=== PATIENT | female | born 1955 | race Hispanic/Latino ===

== ENCOUNTER 2019-09-04 14:21 | Inpatient (IN) | payer SELFPAY ==
[~2019-09-04 14:21] MED LIST: Atropine Sulfate 1 mg/10 ml Syringe ONE
--- NOTE | 2019-09-04 14:51 | RAD ---
Exam: Chest one view HISTORY:Dyspnea. Right lower cavity swelling. Comparison: None FINDINGS: Cardiac silhouette:Enlarged cardiac silhouette due to bibasilar opacities. Aorta: Unremarkable Pulmonary vessels: Prominent Costophrenic angles: Bilateral pleural effusions LUNGS: Bibasilar lung parenchymal opacities. Pneumothorax: None Osseous abnormalities: None IMPRESSION: 1. Bibasilar pleural and parenchymal changes. Correlate for volume overload. Pneumonia and/or aspirat ion cannot be excluded. Continued surveillance is recommended.
[2019-09-04 15:03] LABS: #Eosinphils 0.1 thou/uL (0.0-0.7); #Lymphocytes 1.3 thou/uL (1.20-3.40); #Monocytes 0.2 thou/uL (0.11-0.59); #Neutrophils 6.7 thou/uL (1.40-6.50); %Basophils 0.4 % (0.0-1.0); %Eosinophils 1.3 % (0.0-10.0); %Lymphocytes 15.9 % (21.0-51.0); %Monocytes 2.4 % (0.0-10.0); %Neutrophils 79.9 % (42.0-75.0); Hemoglobin 14.5 g/dL (12.0-16.0); Mean Corpuscular HGB CONC 33.4 g/dL (32.0-36.0); Mean Corpuscular Hemoglobin 28.3 pg (27.0-31.0); Mean Corpuscular Volume 84.8 fL (78.0-98.0); Mean Platelet Volume 7.5 fL (7.4-10.4); Platelet Count 354 thou/uL (130-400); RBC Distribution Width 11.3 % (11.5-14.5); Red Blood Cell (RBC) Count 5.13 mill/uL (4.20-5.40); White Blood Cell (WBC) Count 8.3 thou/uL (4.8-10.8)
[2019-09-04 15:26] LABS: ALT (SGPT) 19 U/L (8-55); AST (SGOT) 24 U/L (5-34); Albumin 4.4 g/dL (3.4-4.8); Alkaline Phosphatase 218 U/L (40-110); Anion Gap 17 mmol/L (10-20); BUN (Urea Nitrogen) 10 mg/dL (9.8-20.1); Bilirubin, Total 0.8 mg/dL (0.2-1.2); CK (CPK) 96 U/L (29-168); Calc. Creatinine Clearance 0 mL/min (70-130); Calcium 9.4 mg/dL (7.8-10.44); Carbon Dioxide 30 mmol/L (23-31); Chloride 86 mmol/L (98-107); Estimated GFR-MDRD 78; Globulin 3.8 g/dL (2.4-3.5); Glucose 330 mg/dL (80-115); Lipase 18 U/L (8-78); Potassium 3.9 mmol/L (3.5-5.1); Protein, Total 8.2 g/dL (6.0-8.3); Sodium 129 mmol/L (136-145)
[2019-09-04] MEDS ORDERED: Rocuronium Bromide 10 MG/ML (10ML VIAL) ONE (15:47)
--- NOTE | 2019-09-04 16:07 | CT ---
CTA THORAX UTILIZING IV CONTRAST, PE PROTOCOL AND 3D REFORMATTED IMAGIN09/04/19 HISTORY: There is concern for a COVID infection; history of untreated breast cancer. FINDINGS: No definite central or segmental pulmonary embolus is evident. There is moderate to prominent bilater al pleural effusions. There are numerous scattered pulmonary nodules throughout both lungs consistent with pulmonary metastatic disease. There are areas of subsegmental volume loss involving both lower lobes as well as the lingula, right middle lobe and portions of the upper lobes. There is an aggressi ve infiltrating mass involving the right breast with skin involvement. There is extensive adenopathy involving the right axilla as well as the prepectoral regions. The largest lymph node in the right ax illa measures 2.7 cm. There is a large supraclavicular lymph node measuring 2.3 cm. There are large l eft axillary lymphadenopathy. There is prominent mediastinal and hilar lymphadenopathy. There is dif fuse anasarca. There is an osteolytic lesion involving the posterior left 9th rib. There is an osteol ytic lesion involving the right aspect of the manubrium. IMPRESSION: 1. 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 2. Extensive lymphadenopathy of the right axilla extending into the right supraclavicular region . There is left sided axillary lymphadenopathy. There is extensive adenopathy of the mediastinum and hilar regions. There is bilateral pulmonary metastatic disease. There are moderate prominent bilatera l pleural effusions with scattered areas of subsegmental volume loss. There is osseous metastatic dis ease involving the left posterior 9th rib and manubrium. 3. Overall appearance of the lungs is not suspicious for pattern seen with COVID-19. 4. No central or segmental pulmonary embolus demonstrated. POS: BH
[2019-09-04] MEDS ORDERED: Cefepime 2 GM VIAL ONE (16:13)
[2019-09-04] MEDS ORDERED: Vancomycin 1 GM/200 ML BAG ONE (16:13)
[2019-09-04] MEDS ORDERED: Furosemide 20 MG/2 ML VIAL ONE (16:13)
[2019-09-04] MEDS ORDERED: Sodium Chloride 0.9% 100 ML ONE (16:14)
--- NOTE | 2019-09-04 16:16 | RAD ---
Exam: Chest one view HISTORY:Metastatic cancer. Shortness of breath. Possible COVID patient. Comparison: 09/04/2019 2:43 PM FINDINGS: Lines and tubes: Endotracheal tube at the level of the ahsan. Nasogastric tube extends beyond the di aphragm. Cardiac silhouette: Normal Aorta: Unremarkable Pulmonary vessels: Normal Costophrenic angles: Bilateral pleural effusions. LUNGS: Improved expansion of the lung parenchyma. Multifocal lung parenchymal opacities. Pneumothorax: None Osseous abnormalities: None IMPRESSION: 1. Pleural and parenchymal changes throughout the lung parenchyma 2. Endotracheal tube at the level of the ahsan. Repositioning is recommended 3. Results of study discussed with Dr. Zaman 09/04/2019 4:13 PM Code CR
[2019-09-04 16:21] LABS: Actual Bicarbonate (HCO3a) 26.8 mEq/L (22-28); Base Excess (BEa) 1.8 mEq/L (-2.0 to +3.0); CO2 Tension 43.2 mmHg (35.0-45.0); Calcium, Ionized 1.06 mmol/L (1.12-1.30); Carboxyhemoglobin (COHb) 1.3 gm% (0.0-3.0); O2 Tension (PaO2) 194.9 mmHg (> 80.0); Potassium - ABG Lab 3.76 mmol/L (3.70-5.30); pH, Arterial 7.41 (7.35-7.45)
[2019-09-04] MEDS ORDERED: Propofol 1,000 MG/100 ML VIAL IV ONE (16:23)
[2019-09-04 16:41] LABS: Puncture Site L.R.
[2019-09-04] MEDS ORDERED: CCU Electrolyte Replacement 1 EACH FS SCH (17:10)
[2019-09-04] MEDS ORDERED: Ventilator Sedation Protocol 1 EACH FS SCH (17:15)
[2019-09-04 17:28] LABS: Bacteria/HPF None Seen HPF (None Seen); Bilirubin Negative (Negative); Blood, Urine Trace (Negative); Clarity Clear (Clear); Glucose, Urine (Dipstick) >=1000 mg/dL (Negative); Leukocyte Negative Leu/uL (Negative); Nitrite Negative (Negative); Protein, Urine (Dipstick) 100 mg/dL (Neg-Trace); RBC/HPF 0-3 HPF (0-3); Squamous Epithelial 0-3 HPF (0-3); Urobilinogen Normal mg/dL (Less than 2); WBC/HPF 0-3 HPF (0-3)
[2019-09-04] MEDS ORDERED: PHOS-NAK 1 PKT PACK PO PRN ×2 (18:18)
[2019-09-04] MEDS ORDERED: CCU ELECTROLYTE REPLACEMENT PROTOCOL FS PRN (18:18)
[2019-09-04] MEDS ORDERED: Propofol 1,000 MG/100 ML VIAL IV PRN (18:18)
[2019-09-04] MEDS ORDERED: Magnesium 2 GM/50 ML 2 GM in Premix Bag 1 BAG IVPB PRN (18:18)
[2019-09-04] MEDS ORDERED: Morphine 2 MG/ML SYRINGE SLOW IVP PRN (18:18)
[2019-09-04] MEDS ORDERED: DISCONTINUE PREVIOUS NARCOTIC PAIN MEDICATIONS AND BENZODIAZEPINES FS SCH (18:18)
[2019-09-04] MEDS ORDERED: Potassium Phosphate 15 MMOL in Sodium Chloride 0.9% 250 ML 250 ML IV PRN (18:18)
[2019-09-04] MEDS ORDERED: Propofol BOLUS 1,000 MG/100 ML VIAL IV PRN (18:18)
[2019-09-04] MEDS ORDERED: Magnesium Oxide 400 MG TAB PO PRN ×2 (18:18)
[2019-09-04] MEDS ORDERED: Fentanyl BOLUS 250 ML IVPB PRN (18:18)
[2019-09-04] MEDS ORDERED: Potassium Phosphate 9 MMOL in Sodium Chloride 0.9% 100 ML IVPB PRN (18:18)
[2019-09-04] MEDS ORDERED: Potassium Phosphate 12 MMOL in Sodium Chloride 0.9% 250 ML 250 ML IV PRN (18:18)
[2019-09-04] MEDS ORDERED: Potassium Chloride 20 MEQ TAB PO PRN (18:18)
[2019-09-04] MEDS ORDERED: Lorazepam 2 MG/ML VIAL SLOW IVP PRN (18:18)
[2019-09-04] MEDS ORDERED: Potassium Chloride 40 MEQ in Sodium Chloride 0.9% 250 ML 250 ML IVPB PRN (18:18)
[2019-09-04] MEDS ORDERED: Potassium Chloride 40 MEQ in Premix Bag 1 BAG IVPB PRN (18:18)
[2019-09-04] MEDS ORDERED: fentaNYL Citrate/PF 2,000 MCG in Sodium Chloride 0.9% 60 ML IV SCH (18:18)
[2019-09-04] MEDS ORDERED: HumaLOG 300 UNITS/3 ML VIAL SC PRN (18:52)
[2019-09-04] MEDS ORDERED: Dextrose 50% Abboject 50 ML SYRINGE SLOW IVP PRN (18:52)
[2019-09-04] MEDS ORDERED: Dextrose 5% in Water 1,000 ML IV PRN (18:52)
--- NOTE | 2019-09-04 19:45 | HP ---
CHIEF COMPLAINT: Lower extremity edema. HISTORY OF PRESENT ILLNESS: This patient is a 64-year-old female who presented to the emergency department reporting lower extremity edema. Patient stated she was generally healthy, in fact, told the ER staff that she had been dancing the evening before presenting and her primary concern was some swelling of her lower extremities. She had progressive worsening dyspnea in the emergency department to the point that she required intubation, although she reported no history of this prior to her presentation. I find the patient in the ICU intubated. She is awake and able to interact somewhat with mostly head gestures. In the emergency department, the patient was noted to have what appeared to be a substantial right-sided breast cancer. In asking the patient about this, she states that her breast has had significant changes like this for over two years and it has not caused her any pain. PAST MEDICAL HISTORY: Patient denies any surgeries or medical problems. Denies taking any medications and denies specifically being a diabetic. REVIEW OF SYSTEMS: Very limited given the patient is intubated and has some propofol on board but again primarily concerned with the lower extremity swelling. Otherwise, has felt well. FAMILY HISTORY: Not significantly obtainable. SOCIAL HISTORY: Nonsmoker, nondrinker. Again, limited history. MEDICATIONS: None. ALLERGIES: NONE KNOWN. PHYSICAL EXAMINATION: VITAL SIGNS: Temperature is 97.3, pulse 94, respirations 20, and O2 saturation 98% on ventilator on 40% FiO2. GENERAL APPEARANCE: Age-appropriate female, obese, in no distress. She is awake. She is able to communicate with head gestures. She is intubated on the ventilator with propofol drip. HEENT: Pupils are reactive. NECK: Supple. HEART: Regular rate and rhythm. LUNGS: Clear to auscultation bilaterally, but very diminished even anteriorly. ABDOMEN: Soft, nontender, and nondistended. EXTREMITIES: Reveal 1+ edema in both lower extremities with diminished pulses, likely due to edema. BREAST: Reveals advanced peau d'orange changes of the right breast with some fissures superficially in the skin. It is all extremely firm to palpation. PSYCH: Patient has a generally normal affect and appears to have normal movement of her extremities. LABORATORY DATA: White count 8.3, hemoglobin 14.5, and platelets 354. Sodium 129, potassium 3.9, chloride 86, CO2 is 30, BUN 10, creatinine 0.75, glucose 330, lactic acid 2.7, calcium is 9.4, AST is 24, ALT 19, alk phos 218, and LDH 250. Troponin less than 10. BNP 131. Albumin 4.4. Urinalysis shows greater than 1000 glucose, trace protein, trace blood, and trace ketones. Flu screen, negative. CTA of the chest reveals no evidence of pulmonary edema. There are findings consistent with advanced inflammatory breast cancer of the right breast, extensive lymphadenopathy of the right axilla extending into the right supraclavicular region. There is left-sided axillary lymphadenopathy, extensive adenopathy of the mediastinum and hilar regions, bilateral pulmonary metastatic disease, moderate prominent bilateral pleural effusions with scattered areas of subsegmental volume loss, osseous metastatic disease involving the left posterior 9th rib and manubrium. Overall appearance of the lungs is not suspicious for COVID. IMPRESSION AND PLAN: 1. Acute hypoxic respiratory failure secondary to metastatic disease and bilateral pleural effusions, which may well be malignant effusions. The patient is intubated, admitted to the ICU. She is on propofol. Pulmonary has been consulted. Anticipate thoracentesis with appropriate workup. 2. Widely metastatic inflammatory breast cancer. Patient reports this has been ongoing for at least two years. She has mets to bilateral axillary and right supraclavicular lymph nodes, the lungs, and to the bone of the rib and manubrium. The patient will obviously need to follow up with Oncology. We will need to get cytology results on the fluid, although at this point, she appears to clearly be a stage IV and beyond any surgical interventions. 3. Hyponatremia, likely due to some syndrome of inappropriate antidiuretic hormone secretion from the pleural effusions. We will gently hydrate. Continue to monitor. 4. Diabetes mellitus, not previously diagnosed. We will give sliding scale insulin. Accu-Cheks and check hemoglobin A1c. 5. Lactic acidosis secondary to the respiratory failure. No evidence of infection at this time. Job ID: [id number]
--- NOTE | 2019-09-04 20:18 | CON ---
DATE OF CONSULTATION: 09/04/2019 CONSULTING PHYSICIAN: Fernandez Terrell MD REASON FOR CONSULTATION: Respiratory failure. HISTORY OF PRESENT ILLNESS: The history, I have, is obtained from talking with Dr. Terrell, reading the ER notes. No family is available to give history. The patient is a 64-year-old [place]-speaking female, who came to the emergency room with hypoxia. She was subsequently intubated as the emergency room was scared that she might have COVID. She has been found to have an apparent right breast cancer with a fungating breast. She has bilateral effusions, which I think was causing respiratory failure. PAST MEDICAL HISTORY: Currently not known. PAST SURGICAL HISTORY: Not known. SOCIAL HISTORY: Does not smoke. Does not consume alcohol. Does not use illicit drugs. She is apparently from [place]. PSYCHIATRIC HISTORY: Unknown. MEDICATIONS: Prior to admission, unknown. ALLERGIES: UNKNOWN. REVIEW OF SYSTEMS: Cannot be obtained as she is currently on mechanical ventilation. PHYSICAL EXAMINATION: VITAL SIGNS: Heart rate 75, blood pressure 160/80, respiratory rate 20, O2 saturation 100%, and temperature 97.3. GENERAL: She is actually awake, alert, and follows commands without difficulty. HEENT: Unremarkable. NECK: No adenopathy or JVD. LUNGS: Diminished breath sounds at both bases posteriorly. Dullness at both bases posteriorly. CARDIOVASCULAR: S1 and S2. Slightly tachycardic. BREASTS: She has peau d'orange appearance of the right breast. Left breast looks okay. ABDOMEN: Soft and nontender. No hepatosplenomegaly. EXTREMITIES: No clubbing, cyanosis, or edema. LABORATORY DATA: White blood cell count 8.3, hematocrit 43.5, and platelet count 354. PH of 7.41, pCO2 of 43, PO2 of 194. Sodium 129, potassium 3.9, chloride 86, CO2 of 30, BUN 10, creatinine 0.7, glucose 330, alkaline phosphatase 218, LDH 250. BNP 130. Lactate 2.7. Her CT scan shows the suppurative lesion in the right breast. She has extensive lymphadenopathy in the right axilla and the right supraclavicular region. She has left-sided axillary adenopathy. She has bilateral effusions, right greater than left. She has osseous metastasis to the left posterior 9th rib and the manubrium. ASSESSMENT: This is a 64-year-old female, presenting with an inflammatory right breast cancer with bilateral effusions and respiratory failure. I think most likely her respiratory failure is from the pleural effusions and she would benefit from emergent right-sided thoracentesis. Hopefully, she can be extubated tomorrow. I do not have a high suspicion that this is COVID-19 and I do not think she requires isolation. A thoracentesis has been performed-see separate operative note. The fluid has been sent for appropriate studies. Again, my hope is that she can be extubated tomorrow morning. Job ID: [id number]
[2019-09-04 20:28] LABS: Body Fluid Source Pleural Fluid; Clarity Hazy (Clear); RBC Count-Automated (BF) 22230 /cumm; WBC/Nucleated-Auto (BF) 1580 uL
[2019-09-04 20:29] LABS: Tube # EDTA
[2019-09-04 20:41] LABS: Fluid, Triglycerides 25 mg/dL (Not Available); Pleural Fluid, Amylase Less than 30 U/L (Not Available); Pleural Fluid, Glucose 371 mg/dL; Pleural Fluid, LDH 156 U/L (Not Available); Pleural Fluid, Protein 4.4 g/dL
[2019-09-04 20:46] LABS: BF Segmented Neutrophils 8 %; Cell Count Non Hematic 25 %; Eosinophils 2 %; Lymphocytes 65 %
[2019-09-04 21:02] LABS: Lactic Acid 2.8 mmol/L (0.5-2.2)
[2019-09-04] MEDS: Sodium Chloride 0.9% 1,000 ML IV SCH (21:43)
[2019-09-05 04:40] LABS: Hemoglobin A1c 10.8 % (4.0-6.0)
[2019-09-05 04:53] LABS: Anion Gap 13 mmol/L (10-20); BUN (Urea Nitrogen) 11 mg/dL (9.8-20.1); Calc. Creatinine Clearance 91 mL/min (70-130); Calcium 8.5 mg/dL (7.8-10.44); Carbon Dioxide 34 mmol/L (23-31); Chloride 91 mmol/L (98-107); Estimated GFR-MDRD 86; Glucose 109 mg/dL (80-115); Sodium 135 mmol/L (136-145)
[2019-09-05 04:57] LABS: Potassium 2.6 mmol/L (3.5-5.1)
[2019-09-05 05:02] LABS: #Lymphocytes 0.9 thou/uL (1.20-3.40); #Monocytes 0.3 thou/uL (0.11-0.59); #Neutrophils 6.2 thou/uL (1.40-6.50); %Eosinophils 0.4 % (0.0-10.0); %Lymphocytes 12.4 % (21.0-51.0); %Monocytes 4.2 % (0.0-10.0); %Neutrophils 82.9 % (42.0-75.0); Hemoglobin 12.2 g/dL (12.0-16.0); Mean Corpuscular HGB CONC 34.4 g/dL (32.0-36.0); Mean Corpuscular Hemoglobin 28.9 pg (27.0-31.0); Mean Corpuscular Volume 84.2 fL (78.0-98.0); Mean Platelet Volume 7.9 fL (7.4-10.4); Platelet Count 260 thou/uL (130-400); RBC Distribution Width 11.2 % (11.5-14.5); Red Blood Cell (RBC) Count 4.21 mill/uL (4.20-5.40); White Blood Cell (WBC) Count 7.5 thou/uL (4.8-10.8)
--- NOTE | 2019-09-05 06:23 | OP ---
DATE OF PROCEDURE: 09/04/2019 PROCEDURE PERFORMED: Right thoracentesis. PREOPERATIVE DIAGNOSIS: Malignant right pleural effusion. POSTOPERATIVE DIAGNOSIS: Malignant right pleural effusion. ANESTHESIA: 1% lidocaine without epinephrine. DESCRIPTION OF PROCEDURE: No family was available for consent. This was done to alleviate a pleural effusion so that she could breathe. The patient was placed in a sitting position. The right posterior hemithorax was cleansed at the 5th interspace at the midscapular line. Chlorhexidine was used for the prep. 1% lidocaine was used to anesthetize the entry site. A [id number]-P-[id number] catheter was placed in the pleural space and approximately 1 L of neyda/brown pleural fluid was removed and sent for appropriate studies. She tolerated the procedure well. Job ID: [id number]
[2019-09-05] MEDS ORDERED: DC Sedation Protocol FS ONE (07:29)
--- NOTE | 2019-09-05 07:50 | PRG ---
DATE OF SERVICE: 09/05/2019 35 minutes critical care time. SUBJECTIVE: The patient is sedated on mechanical ventilation. She has done well overnight. PHYSICAL EXAMINATION: VITAL SIGNS: She is 99.5, pulse 65, blood pressure 115/62, O2 saturation 100%. She is requiring no vasopressors. GENERAL: She is sedated on propofol. HEENT: Unremarkable. NECK: No adenopathy or JVD. LUNGS: Fairly clear at the bases. She has a peau d'orange appearance of her right breast. CARDIAC: S1, S2. Regular. ABDOMEN: Soft. EXTREMITIES: Trace edema. LABORATORY DATA: Pleural fluid was a lymphocytic exudate. Her white cell count 7.5, hematocrit 35.4, and platelet count 260. Sodium 135, potassium 2.6, chloride 91, CO2 of 34, BUN 11, creatinine 0.6, glucose 109. Hemoglobin A1c is 10.8. ASSESSMENT: 1. Metastatic breast cancer. 2. Likely malignant pleural effusions. 3. Acute respiratory failure requiring mechanical ventilation. PLAN: With the drainage of the effusion I think she is probably weanable. We will turn off her sedation and extubate. We will follow up on the results of the pleural fluid. She likely will need an oncologic opinion once the cytology from the pleural fluid is back. If for some reason the pleural fluid cytology is negative, then the breast can be biopsied. Job ID: [id number]
--- NOTE | 2019-09-05 08:00 | RAD ---
SINGLE VIEW CHEST: Date: 09/05/2019 COMPARISON: 09/04/2019. HISTORY: Shortness of breath. Metastatic cancer. Possible COVID patient. FINDINGS: Single view of the chest shows a cardiomediastinal silhouette which is upper limits of normal in size . The lines and tubes are unchanged in position. There are small bilateral pleural effusions. An infi ltrate versus atelectasis is seen in the right lung base. IMPRESSION: 1. Bilateral pleural effusions. 2. Right basilar atelectasis versus infiltrate. POS: EAA
[2019-09-05] MEDS: Enoxaparin Sodium 40 MG/0.4 ML SYRINGE SC SCH ×2 (08:32→08:47)
[2019-09-05] MEDS: Pantoprazole 40 MG VIAL IVP SCH (08:33)
[2019-09-05] MEDS: Sodium Chloride 0.9% 1,000 ML IV SCH ×2 (10:18→21:24)
--- NOTE | 2019-09-05 13:43 | EKG ---
Test Reason : Blood Pressure : / mmHG Vent. Rate : 102 BPM Atrial Rate : 102 BPM P-R Int : 138 ms QRS Dur : 080 ms QT Int : 316 ms P-R-T Axes : 025 -17 018 degrees QTc Int : 411 ms Sinus tachycardia with Premature supraventricular complexes Inferior infarct , age undetermined Anterior infarct , age undetermined Abnormal ECG Confirmed by BELKIS ZEE ([id number]), publications editor CHUCK FORD ([id number]) on 09/05/2019 1:43:30 PM Referred By: Confirmed By:BELKIS ZEE
[2019-09-05] MEDS ORDERED: HumaLOG 300 UNITS/3 ML VIAL SC PRN (14:19)
--- NOTE | 2019-09-05 14:22 | PDOC.HOSPP ---
- Subjective Encounter Date: 09/05/19 Subjective: Extubated, still somewhat sedated. - Objective Vital Signs & Weight: Vital Signs (12 hours) Temp Pulse Resp BP Pulse Ox 09/05/19 11:00 98.7 F 09/05/19 08:30 95 09/05/19 08:20 75 21 H 94 L 09/05/19 08:00 20 09/05/19 07:21 65 135/61 09/05/19 07:00 99 F 09/05/19 06:00 20 09/05/19 04:00 20 09/05/19 03:49 79 Weight Admit Weight 153 lb Weight 153 lb 7.068 oz Most Recent Monitor Data Heart Rate from ECG 76 NIBP 170/84 NIBP BP-Mean 112 Respiration from ECG 21 SpO2 95 I&O: 09/04/19 09/05/19 09/06/19 06:59 06:59 06:59 Intake Total 707 5.7 Output Total 1760 595 Balance -1053 -589.3 Result Diagrams: 09/05/19 04:10 09/05/19 04:10 Additional Labs: Accuchecks 09/05/19 09/05/19 11:16 00:34 POC Glucose 226 H 268 H Hospitalist ROS - Medication Medications: Active Medications Generic Name Dose Route Start Last Admin Trade Name Freq PRN Reason Stop Dose Admin Enoxaparin Sodium 40 mg 09/05/19 09:00 09/05/19 08:47 Lovenox SC Not Given 0900 JAROD Potassium Chloride 40 meq/ 270 mls @ 135 mls/hr 09/04/19 18:18 09/05/19 06:00 Sodium Chloride IVPB 270 mls ASDIR PRN Administration FOR SERUM K+ 2.5 - 3.5 Sodium Chloride 1,000 mls @ 50 mls/hr 09/04/19 19:00 09/05/19 10:18 Normal Saline 0.9% IV 1,000 mls .Q20H JAROD Administration Pantoprazole Sodium 40 mg 09/05/19 09:00 09/05/19 08:33 Protonix IVP 40 mg DAILY JAROD Administration Sodium Chloride 10 ml 09/05/19 09:00 09/05/19 08:33 Flush - Normal Saline IVF 10 ml Q12HR JAROD Administration - Exam General Appearance: NAD General - other findings: Obese Heart: RRR, no murmur, no gallops, no rubs, normal peripheral pulses Respiratory: CTAB, no wheezes, no rales, no ronchi, normal chest expansion, no tachypnea, normal percussion Gastrointestinal: soft, non-tender, non-distended, normal bowel sounds, no palpable masses, no hepatomegaly, no splenomegaly, no bruit Extremities: no cyanosis, no clubbing, no edema Musculoskeletal: generalized weakness Psychiatric: somnolent Hosp A/P (1) Acute respiratory failure with hypoxia Code(s): J96.01 - ACUTE RESPIRATORY FAILURE WITH HYPOXIA Status: Acute (2) Bilateral pleural effusion Code(s): J90 - PLEURAL EFFUSION, NOT ELSEWHERE CLASSIFIED Status: Acute (3) Metastatic breast cancer Code(s): C50.919 - MALIGNANT NEOPLASM OF UNSP SITE OF UNSPECIFIED FEMALE BREAST Status: Acute (4) Diabetes mellitus Code(s): E11.9 - TYPE 2 DIABETES MELLITUS WITHOUT COMPLICATIONS Status: Acute - Plan Resp failure: Secondary to effusions. S/P thoracentesis 09/03. Extubated 09/04. NC oxygen. Pleural effusions: Likely malignant. S/P thoracentesis. Metastatic Inflammatory Breast Cancer: Mets to bilateral axillary nodes, thoracic nodes, lungs, bone. Await confirmation from pleural fluid, then consult Onc. Otherwise, breast biopsy. DM: SSI.
[2019-09-05 16:01] LABS: Potassium 4.3 mmol/L (3.5-5.1)
--- NOTE | 2019-09-05 16:30 | PDOC.PALCO ---
Palliative Care Consult - Consult Details Requesting Physician: Dr Dial Reason for Consult: goals of care, assistance with communication prognosis/ disease - Pertinent HPI 64 year old female who reported that she had been "healthy" prior to presenting to the emergency room for lower extremity edema. While in the emergency room she experienced onset dyspnea with increase in severity. She eventually required intubation and admitted to the CCU. Upon exam in the emergency room she was noted to have pronounced right sided breast cancer, patient reports the changes have occurred over the past two years but had not sought any help. - Social History Smoking Status: Never smoker Smoking: no tobacco exposure Alcohol Use: none Drug Use History: none Living Situation: (Lives with her and daughter) - Medications MAR Reviewed: Yes - Allergies Allergies/Adverse Reactions: Allergies Allergy/AdvReac Type Severity Reaction Status Date / Time No Known Drug Allergies Allergy Verified 09/04/19 18:17 - ROS Constitutional: alert, other (denies malaise, fever) Eyes: other (denies visual changes) ENT: other (mild sore throat, denies difficulity swallowing) Respiratory: other (denies chortness of breath, cough) Cardiology: edema Gastrointestinal: other (negative for constipation, diarrhea, nausea) Genitourinary: other (denies dysuria prior to cardoso) Musculoskeletal: other (denies pain to extremities) Skin: wounds (As per wound photo to right breast) - Objective Vital Signs: Vital Signs - Most Recent Temp Pulse Resp BP Pulse Ox 97.7 F 75 21 H 135/61 95 09/05/19 15:00 09/05/19 08:20 09/05/19 08:20 09/05/19 07:21 09/05/19 08:30 Palliative Performance Scale: 80 - Physical Exam Constitutional: NAD HEENT: EOMI, moist MMs, sclera anicteric, poor dentition Respiratory: no wheezing, unlabored breathing, diminished lung sound Cardiovascular: RRR Gastrointestinal: non-tender, no distention, positive bowel sounds Genitourinary: cardoso catheter Musculoskeletal: pulses present, edema present Neurology: moves all 4 limbs, no focal deficits Skin: cap refill <2 seconds Deviation from normal: wound to right breast Psychiatric: A&O x 3, normal affect - Problem List (1) Palliative care encounter Code(s): Z51.5 - ENCOUNTER FOR PALLIATIVE CARE Current Visit: Yes Status: Acute (2) Diabetes mellitus Code(s): E11.9 - TYPE 2 DIABETES MELLITUS WITHOUT COMPLICATIONS Current Visit : Yes Status: Acute (3) Metastatic breast cancer Code(s): C50.919 - MALIGNANT NEOPLASM OF UNSP SITE OF UNSPECIFIED FEMALE BREAST Current Visit: Yes Status: Acute - Plan/Recommendations Plan: Introduced palliative care to patient with Kerrie Chandler RN and use of beehive kiln supervisor. Discussed current status, and her understanding of breast mass. States she wishes to pursue treatment for cancer. No funding. Lives with her and daughter, she has another daughter in [place]. Favorite thing is to cook for her family in her home. Denies shortness of breath although significant shortness of breath noted. Records reviewed and patient assessed. *Will communicate with family to identify resources and provide emotional support and assistance with disease prognosis. *Emotional support. *Spiritual care involved. [50] minutes spent on this encounter with >50% of the time in counseling and coordination of care. Thank you for this very appropriate consult.
[2019-09-06 07:34] LABS: #Lymphocytes 0.7 thou/uL (1.20-3.40); #Monocytes 0.5 thou/uL (0.11-0.59); #Neutrophils 9.2 thou/uL (1.40-6.50); %Basophils 0.1 % (0.0-1.0); %Eosinophils 0.4 % (0.0-10.0); %Monocytes 5.1 % (0.0-10.0); %Neutrophils 87.4 % (42.0-75.0); Hemoglobin 15.3 g/dL (12.0-16.0); Mean Corpuscular HGB CONC 32.8 g/dL (32.0-36.0); Mean Corpuscular Hemoglobin 28.9 pg (27.0-31.0); Mean Platelet Volume 8.6 fL (7.4-10.4); Platelet Count 149 thou/uL (130-400); RBC Distribution Width 11.6 % (11.5-14.5); Red Blood Cell (RBC) Count 5.28 mill/uL (4.20-5.40); White Blood Cell (WBC) Count 10.5 thou/uL (4.8-10.8)
[2019-09-06 07:36] LABS: Anion Gap 16 mmol/L (10-20); BUN (Urea Nitrogen) 12 mg/dL (9.8-20.1); Calc. Creatinine Clearance 99 mL/min (70-130); Calcium 8.5 mg/dL (7.8-10.44); Carbon Dioxide 27 mmol/L (23-31); Chloride 93 mmol/L (98-107); Estimated GFR-MDRD Greater than 90; Glucose 194 mg/dL (80-115); Potassium 3.8 mmol/L (3.5-5.1); Sodium 132 mmol/L (136-145)
--- NOTE | 2019-09-06 08:17 | PRG ---
DATE OF SERVICE: 09/06/2019 SUBJECTIVE: The patient appears to be doing well. Does not have any complaints of shortness of breath. OBJECTIVE: VITAL SIGNS: On exam, temperature is 98.7, pulse 83, respirations 18, O2 saturation 94%, and blood pressure 194/106. HEENT: Unremarkable. NECK: No JVD. LUNGS: Diminished breath sounds at both bases. CARDIOVASCULAR: S1 and S2, regular. CHEST: She has peau d'orange right breast mass. ABDOMEN: Soft and nontender. EXTREMITIES: No edema. LABORATORY DATA: White blood cell count 10.5, hematocrit 46.5, and platelet count 149. Sodium 132, potassium 3.8, chloride 93, CO2 of 27, BUN 12, creatinine 0.6, and glucose 194. ASSESSMENT: 1. Likely metastatic breast cancer. 2. Bilateral pleural effusions, likely malignant. 3. Status post respiratory failure, requiring mechanical ventilation. PLAN: Await results from pleural fluid cytology. Job ID: [id number]
[2019-09-06] MEDS: Pantoprazole 40 MG VIAL IVP SCH (08:25)
[2019-09-06] MEDS: Enoxaparin Sodium 40 MG/0.4 ML SYRINGE SC SCH (08:27)
[2019-09-06] MEDS: Sodium Chloride 0.9% 1,000 ML IV SCH ×2 (17:44→20:25)
--- NOTE | 2019-09-06 18:51 | PDOC.HOSPP ---
- Subjective Encounter Date: 09/06/19 Subjective: Doing well today. Denies problems. Breathing comfortably. No pain. - Objective Vital Signs & Weight: Vital Signs (12 hours) Temp Pulse Resp BP BP Pulse Ox 09/06/19 08:30 175/97 H 09/06/19 07:44 98.7 F 83 18 194/106 H 94 L Weight Admit Weight 153 lb Weight 153 lb 7.068 oz Most Recent Monitor Data Heart Rate from ECG 71 NIBP 154/83 NIBP BP-Mean 106 Respiration from ECG 16 SpO2 94 I&O: 09/05/19 09/06/19 09/07/19 06:59 06:59 06:59 Intake Total 707 862.7 Output Total 1760 875 Balance -1053 -12.3 Result Diagrams: 09/06/19 06:55 09/06/19 06:55 Additional Labs: Accuchecks 09/06/19 09/06/19 18:29 12:09 POC Glucose 287 H 272 H Hospitalist ROS - Medication Medications: Active Medications Generic Name Dose Route Start Last Admin Trade Name Freq PRN Reason Stop Dose Admin Enoxaparin Sodium 40 mg 09/05/19 09:00 09/06/19 08:27 Lovenox SC Not Given 0900 JAROD Potassium Chloride 40 meq/ 270 mls @ 135 mls/hr 09/04/19 18:18 09/05/19 06:00 Sodium Chloride IVPB 270 mls ASDIR PRN Administration FOR SERUM K+ 2.5 - 3.5 Sodium Chloride 1,000 mls @ 50 mls/hr 09/04/19 19:00 09/06/19 17:44 Normal Saline 0.9% IV Not Given .Q20H JAROD Pantoprazole Sodium 40 mg 09/05/19 09:00 09/06/19 08:25 Protonix IVP 40 mg DAILY JAROD Administration Sodium Chloride 10 ml 09/05/19 09:00 09/06/19 08:26 Flush - Normal Saline IVF 10 ml Q12HR JAROD Administration - Exam General Appearance: NAD, awake alert Heart: RRR, no murmur, no gallops, no rubs, normal peripheral pulses Respiratory: CTAB, no wheezes, no rales, no ronchi, normal chest expansion, no tachypnea, normal percussion Respiratory - other findings: Diminished in both bases. Gastrointestinal: soft, non-tender, non-distended, normal bowel sounds, no palpable masses, no hepatomegaly, no splenomegaly, no bruit Extremities: no cyanosis, no clubbing, no edema Skin: normal turgor, no lesions, no rashes Musculoskeletal: normal tone, normal strength, no muscle wasting Psychiatric: normal affect Hosp A/P (1) Acute respiratory failure with hypoxia Code(s): J96.01 - ACUTE RESPIRATORY FAILURE WITH HYPOXIA Status: Acute (2) Bilateral pleural effusion Code(s): J90 - PLEURAL EFFUSION, NOT ELSEWHERE CLASSIFIED Status: Acute (3) Metastatic breast cancer Code(s): C50.919 - MALIGNANT NEOPLASM OF UNSP SITE OF UNSPECIFIED FEMALE BREAST Status: Acute (4) Diabetes mellitus Code(s): E11.9 - TYPE 2 DIABETES MELLITUS WITHOUT COMPLICATIONS Status: Acute - Plan Resp failure: Secondary to effusions. S/P thoracentesis 09/03. Extubated 09/04. NC oxygen. Wean as tolerated. Pleural effusions: Likely malignant. S/P thoracentesis. Metastatic Inflammatory Breast Cancer: Mets to bilateral axillary nodes, thoracic nodes, lungs, bone. Await confirmation from pleural fluid, then consult Onc. Otherwise, breast biopsy. DM: New diagnosis. SSI. Dispo: If she can be weaned off the oxygen, she can likely go home with outpatient followup. Will need oncology followup. Difficult to trust that she will follow through as she has let this severe deformation of right breast go for 2 years without addressing it.
[2019-09-07] MEDS ORDERED: hydrALAZINE 25 MG TAB PO PRN (05:26)
--- NOTE | 2019-09-07 07:16 | RAD ---
2 VIEWS CHEST: Date: 09/07/2019 COMPARISON: 09/05/2019. HISTORY: Shortness of breath. FINDINGS: Two views of the chest show a normal sized cardiomediastinal silhouette. There are stable moderate bi lateral pleural effusions with adjacent atelectasis. The endotracheal tube and NG tube have been faith katie. IMPRESSION: Stable bilateral pleural effusions. POS: [facility]
[2019-09-07] MEDS: Pantoprazole 40 MG VIAL IVP SCH (08:07)
[2019-09-07] MEDS: Enoxaparin Sodium 40 MG/0.4 ML SYRINGE SC SCH (08:07)
[2019-09-07] MEDS ORDERED: metFORMIN 500 MG TAB PO SCH (09:30)
--- NOTE | 2019-09-07 11:11 | PDOC.HOSPP ---
- Subjective Encounter Date: 09/07/19 Subjective: Feels ok. She has mild cough with sputum, but denies SOB. - Objective Vital Signs & Weight: Vital Signs (12 hours) Temp Pulse Resp BP BP BP Pulse Ox 09/07/19 08:19 192/88 H 09/07/19 08:00 95 09/07/19 07:07 98.3 F 83 18 206/106 H 95 09/07/19 05:36 78 180/106 H 09/07/19 05:09 97.6 F 75 16 173/103 H 94 L 09/07/19 04:00 93 L 09/07/19 02:06 88 20 91 L 09/07/19 01:05 98.2 F 85 20 144/91 H 85 L Weight Admit Weight 153 lb Weight 153 lb 7.068 oz Most Recent Monitor Data Heart Rate from ECG 71 NIBP 154/83 NIBP BP-Mean 106 Respiration from ECG 16 SpO2 94 I&O: 09/06/19 09/07/19 09/08/19 06:59 06:59 06:59 Intake Total 862.7 1500 Output Total 875 Balance -12.3 1500 Result Diagrams: 09/06/19 06:55 09/06/19 06:55 Additional Labs: Accuchecks 09/07/19 09/07/19 09/06/19 05:08 01:00 18:29 POC Glucose 281 H 330 H 287 H 09/06/19 12:09 POC Glucose 272 H Hospitalist ROS - Medication Medications: Active Medications Generic Name Dose Route Start Last Admin Trade Name Freq PRN Reason Stop Dose Admin Enoxaparin Sodium 40 mg 09/05/19 09:00 09/07/19 08:07 Lovenox SC 40 mg 0900 JAROD Administration Potassium Chloride 40 meq/ 270 mls @ 135 mls/hr 09/04/19 18:18 09/05/19 06:00 Sodium Chloride IVPB 270 mls ASDIR PRN Administration FOR SERUM K+ 2.5 - 3.5 Sodium Chloride 1,000 mls @ 50 mls/hr 09/04/19 19:00 09/06/19 20:25 Normal Saline 0.9% IV 1,000 mls .Q20H JAROD Administration Metformin HCl 500 mg 09/07/19 09:30 09/07/19 09:44 Glucophage PO 09/07/19 11:30 500 mg NOW JAROD Administration Pantoprazole Sodium 40 mg 09/05/19 09:00 09/07/19 08:07 Protonix IVP 40 mg DAILY JAROD Administration Sodium Chloride 10 ml 09/05/19 09:00 09/07/19 08:07 Flush - Normal Saline IVF Not Given Q12HR JAROD - Exam General Appearance: NAD, awake alert Heart: RRR, no murmur, no gallops, no rubs, normal peripheral pulses Respiratory: CTAB, no wheezes, no rales, no ronchi, normal chest expansion, no tachypnea, normal percussion Respiratory - other findings: Slightly diminished at bases. Gastrointestinal: soft, non-tender, non-distended, normal bowel sounds, no palpable masses, no hepatomegaly, no splenomegaly, no bruit Extremities - other findings: mild generalized edema. Musculoskeletal: normal tone, normal strength, no muscle wasting Psychiatric: normal affect, normal behavior, A&O x 3 Hosp A/P (1) Acute respiratory failure with hypoxia Code(s): J96.01 - ACUTE RESPIRATORY FAILURE WITH HYPOXIA Status: Acute (2) Bilateral pleural effusion Code(s): J90 - PLEURAL EFFUSION, NOT ELSEWHERE CLASSIFIED Status: Acute (3) Metastatic breast cancer Code(s): C50.919 - MALIGNANT NEOPLASM OF UNSP SITE OF UNSPECIFIED FEMALE BREAST Status: Acute (4) Diabetes mellitus Code(s): E11.9 - TYPE 2 DIABETES MELLITUS WITHOUT COMPLICATIONS Status: Acute - Plan Resp failure: Secondary to effusions. S/P thoracentesis 09/03. Extubated 09/04. NC oxygen. Wean as tolerated. Pleural effusions: Malignant. S/P thoracentesis. Metastatic Inflammatory Breast Cancer: Mets to bilateral axillary nodes, thoracic nodes, lungs, bone. Path confirms metastatic breast cancer/malig effusion. Long discussion with the [employer] hide paster. She is from [place] near [facility]. She would like to go back there for her treatment. DM: New diagnosis. SSI. Added metformin. HTN: BP now running high. No hx of htn. Adding meds. Dispo: If she can be weaned off the oxygen, she can likely go home with outpatient followup. Will need oncology followup.
[2019-09-07] MEDS ORDERED: guaiFENesin ER 600 MG TAB PO SCH (11:15)
--- NOTE | 2019-09-07 14:54 | PRG ---
DATE OF SERVICE: 09/07/2019 SUBJECTIVE: Simi has no complaints. OBJECTIVE: VITAL SIGNS: She is afebrile. Heart rates , 95 on nasal cannula. Blood pressure is elevated today 206/106. LUNGS: Decreased breath sounds at her bases. HEART: Regular rhythm. ABDOMEN: Soft. Pleural fluid, positive for malignant cells. IMPRESSION: Metastatic breast cancer. radiograph was stable. Job ID: [id number]
[2019-09-07] MEDS: metFORMIN 500 MG TAB PO SCH (16:13)
[2019-09-07] MEDS: hydrALAZINE 25 MG TAB PO SCH ×2 (16:13→21:32)
[2019-09-07] MEDS: Sodium Chloride 0.9% 1,000 ML IV SCH (21:32)
[2019-09-07] MEDS: guaiFENesin ER 600 MG TAB PO SCH (21:33)
[2019-09-08] MEDS ORDERED: cloNIDine 0.1 MG TAB PO PRN (04:29)
[2019-09-08] MEDS ORDERED: cloNIDine 0.1 MG TAB PO SCH (07:00)
[2019-09-08] MEDS: Enoxaparin Sodium 40 MG/0.4 ML SYRINGE SC SCH (07:59)
[2019-09-08] MEDS: metFORMIN 500 MG TAB PO SCH ×2 (07:59→18:00)
[2019-09-08] MEDS: guaiFENesin ER 600 MG TAB PO SCH (07:59)
[2019-09-08] MEDS: hydrALAZINE 25 MG TAB PO SCH ×2 (07:59→15:10)
[2019-09-08] MEDS: Pantoprazole 40 MG VIAL IVP SCH (10:38)
[2019-09-08] MEDS ORDERED: Iopamidol-370 76% 500 ML 1 ML ONE (12:27)
[2019-09-08] MEDS ORDERED: Ketamine 50 MG/ML (10ML VIAL) ONE (17:35)
[2019-09-08] MEDS ORDERED: Rocuronium Bromide 10 MG/ML (10ML VIAL) ONE (17:35)
[2019-09-08] MEDS ORDERED: Propofol 1,000 MG/100 ML VIAL IV ONE (17:47)
[2019-09-08] MEDS ORDERED: Lorazepam 2 MG/ML VIAL SLOW IVP PRN (18:21)
[2019-09-08] MEDS ORDERED: Propofol BOLUS 1,000 MG/100 ML VIAL IV PRN (18:21)
[2019-09-08] MEDS ORDERED: fentaNYL Citrate/PF 2,000 MCG in Sodium Chloride 0.9% 60 ML IV SCH (18:21)
[2019-09-08] MEDS ORDERED: DISCONTINUE PREVIOUS NARCOTIC PAIN MEDICATIONS AND BENZODIAZEPINES FS SCH (18:21)
[2019-09-08] MEDS ORDERED: Fentanyl BOLUS 250 ML IVPB PRN (18:21)
--- NOTE | 2019-09-08 18:31 | PDOC.EVN ---
Event Note - Event Note Event Note: Patient was eval'd by Dr. Gillette today and he ordered some staging workup. While in CT she had hypoxia and bradycardia and almost arrested. Had a code green and was intubated for acute hypoxic respiratory failure. She stabilized and has central line placed now. Will transfer to ICU. Discussed with Dr. Cartagena. Differential includes PE (has been on Lovenox), cardiac ischemia/ arrhythmia.
[2019-09-08 18:34] LABS: Actual Bicarbonate (HCO3a) 26.1 mEq/L (22-28); Analyzer IN Cardio ER; Base Excess (BEa) 3.1 mEq/L (-2.0 to +3.0); CO2 Tension 35.1 mmHg (35.0-45.0); Calcium, Ionized 1.09 mmol/L (1.12-1.30); Carboxyhemoglobin (COHb) 0.4 gm% (0.0-3.0); Hemoglobin (Hb) 13.4 g/dL (12.0-16.0); O2 Tension (PaO2) 74.5 mmHg (> 80.0); Potassium - ABG Lab 3.59 mmol/L (3.70-5.30); pH, Arterial 7.49 (7.35-7.45)
--- NOTE | 2019-09-08 18:36 | RAD ---
PORTABLE SUPINE CHEST: 09/08/19 INDICATIONS: Assess central line placement. COMPARISON: 09/05/19. FINDINGS/IMPRESSION: ET tube remains in place with tip above ahsan. A central line via the left subclavian appears adequ ately positioned with tip overlying the SVC/right atrium. There is vascular congestion with evidence of bilateral edema and/or infiltrates. There are bilateral effusions again noted. POS: [facility]
[2019-09-08 18:39] LABS: Puncture Site LRA
[2019-09-08 18:40] LABS: ALV-art Gradient 166.825 (0-20)
--- NOTE | 2019-09-08 19:02 | CON ---
DATE OF CONSULTATION: REASON FOR CONSULTATION: Metastatic breast cancer. HISTORY OF PRESENT ILLNESS: A 64-year-old female without past medical history as she does not follow with a physician, presenting to the hospital with worsening lower extremity edema and shortness of breath. In the ER, she had worsening dyspnea, requiring intubation. She was treated in the ICU and extubated and is feeling much better. The patient has a large right-sided breast mass that is inner way at her breast and chest wall with bilateral upper extremity swelling and pleural effusions and is status post thoracentesis, which found metastatic breast cancer in the pleural fluid. The patient states she first noticed changes in her breast at least 2 years ago and says she was treated with antibiotics by a physician in [place]. She says she had a mammogram at that time and was told she had symptoms of cancer, but says she was never diagnosed with that. She never saw a doctor again. She cannot explain why she did not get the breast mass evaluated, but says that it does not cause her pain and perhaps this is why. She denies pain elsewhere and no fevers, nausea, vomiting, diarrhea, constipation, headaches, blurry vision, or vision changes. She denies any family history of breast cancer nor any other cancer. She states she does not smoke or drink. PAST MEDICAL HISTORY: None; however, likely has undiagnosed diabetes and hypertension at the very least. REVIEW OF SYSTEMS: Ten-point review of systems negative except as per HPI. FAMILY HISTORY: No cancer as per the patient. SOCIAL HISTORY: No tobacco or alcohol. Lives with , daughter, and son-in-law. MEDICATIONS: None at home. Current medications reviewed. ALLERGIES: NO KNOWN DRUG ALLERGIES. PHYSICAL EXAMINATION: VITAL SIGNS: Temperature 98.2, pulse 89, blood pressure 155/79, and satting 96% on room air. GENERAL APPEARANCE: The patient is sitting up in chair, in no acute distress. HEENT: Normocephalic and atraumatic. RESPIRATIONS: Nonlabored. CARDIAC: Tachycardia noted. ABDOMEN: Soft, obese. EXTREMITIES: 1+ bilateral lower extremity edema and 1 to 2+ edema in upper extremities bilaterally. BREASTS: Breast is bandaged, but shows diffuse neglected breast cancer of the right breast with minimal right axillary lymphadenopathy palpable. The left breast shows some peau d'orange changes with skin dimpling and left axillary lymphadenopathy is palpable. LABORATORY DATA: White blood cells 10.5, hemoglobin 15.3, and platelets 149. Sodium 132, potassium 3.8, BUN 12, and creatinine 0.63. Hemoglobin A1c 10.8%. Lactate 2.8%. Calcium 8.5 and alkaline phosphatase 218. BNP 130.9. IMAGING DATA: CT angio of the chest showed no pulmonary edema, but did show advanced inflammatory breast cancer of the right breast with extensive right axillary adenopathy and right supraclavicular adenopathy with some left-sided axillary lymphadenopathy, mediastinal and hilar lymphadenopathy, bilateral pulmonary metastatic disease and pleural effusions along with osseous metastatic disease in the left posterior 9th rib and manubrium. ASSESSMENT AND PLAN: A 64-year-old female with neglected right-sided breast cancer with diffuse metastatic disease to lungs and bone along with possible metastatic disease to the left breast versus 2nd primary. I reviewed the diagnosis and staging with the patient and potential treatment options including oral therapy and IV chemotherapy. The exact treatment and prognosis will depend on her hormone status, HER-2 status. This was a wide range between HER-2 and hormone positive disease and triple-negative breast cancer. I suspect she likely has hormone positive disease. If this has in fact been here for 2 years, and clinically she appears this well. If this is the case, then I would plan to start her on endocrine therapy with Femara and oral Ibrance. She will also need a bisphosphonate to her metastatic bone disease. We will go ahead with bone scan and CT abdomen and pelvis to complete staging as she currently is uninsured and this will be difficult to get in the outpatient setting at this time. She does qualify for breast Medicaid and this process has already been started. I will follow up her breast profile, which should be back sometime next week and I will follow up with her in clinic after that. The patient acknowledges understanding. Thank you for this consult. Job ID: [id number]
--- NOTE | 2019-09-08 19:29 | CT ---
CTA CHEST WITH CONTRAST: 09/08/19 Axial tomograms obtained following angio protocol with multiplanar reconstruction and 3D postprocessi ng. INDICATIONS: Unresponsive, cardiac arrest. Comparison made to recent CTA chest 09/04/19. FINDINGS: The pulmonary arteries show adequate opacification. There is new pulmonary emboli now seen on the right. There is emboli in the right interlobar descendi ng pulmonary artery with extension into the right lower lobe pulmonary arteries. There is also embol us seen into a right upper lobe pulmonary artery. No definite left lung embolus identified. Large bilateral pleural effusions with lung atelectasis. There is cardiomegaly with vascular congesti on. Evidence of pulmonary edema. There are numerous pulmonary nodules again noted which were describe d previously. The adenopathy has been previously described on the prior exam. The right breast mass w ith skin thickening is again seen consistent with inflammatory carcinoma as previously described. The osseous metastatic lesions are again noted. IMPRESSION: 1. Numerous small pulmonary emboli seen in the right pulmonary arteries. 2. Large bilateral pleural effusions with compressive atelectasis. 3. Congestive change with edema. Confluent atelectasis in the right middle lobe. 4. Numerous pulmonary nodules again noted along with adenopathy and right breast mass as describ ed on recent exam of 09/04/19. Subcutaneous edema consistent with anasarca again noted. Findings relayed to Dr. Jose by phone. POS: [facility]
--- NOTE | 2019-09-08 19:40 | CT ---
CT ABDOMEN AND PELVIS WITH IV CONTRAST: 09/08/19 INDICATION: Breast cancer. Known pulmonary mets. Assess for abdominal metastasis. FINDINGS: Images through the lung bases show a large amount of pleural effusion with pulmonary edema, atelectas is and consolidation and/or atelectasis in the right middle lobe. Images through the lung bases also show the previously described mass involving the right breast with skin involvement and diffuse subcu taneous edema noted on recent CTA of chest. The liver, spleen and pancreas unremarkable. Bowel loops unremarkable. Aorta normal caliber. No mass or adenopathy in the abdomen. Uterus unremarkable. The osseous structures of the lumbar spine and pel vis show no focal lytic or destructive lesion. IMPRESSION: Chest findings as described above on images through the lower chest. No evidence of acute process in the abdomen. POS: [facility]
[2019-09-08] MEDS ORDERED: hydrALAZINE 20 MG/ML VIAL SLOW IVP PRN (19:41)
[2019-09-08] MEDS ORDERED: Enoxaparin Sodium 80 MG/0.8 ML SYRINGE SC SCH (19:45)
[2019-09-08] MEDS: Sodium Chloride 0.9% 1,000 ML IV SCH (20:58)
[2019-09-08] MEDS: Enoxaparin Sodium 80 MG/0.8 ML SYRINGE SC SCH (20:58)
[2019-09-08 23:13] LABS: CKMB 0.9 ng/mL (0-6.6)
[2019-09-09] MEDS: HumaLOG 300 UNITS/3 ML VIAL SC PRN (00:31)
[2019-09-09 04:41] LABS: CKMB 0.8 ng/mL (0-6.6)
[2019-09-09] MEDS: Propofol 1,000 MG/100 ML VIAL IV PRN ×3 (04:49→22:31)
[2019-09-09] MEDS: Pantoprazole 40 MG VIAL IVP SCH (09:20)
[2019-09-09] MEDS: Enoxaparin Sodium 80 MG/0.8 ML SYRINGE SC SCH ×2 (09:21→21:30)
[2019-09-09] MEDS ORDERED: Furosemide 20 MG/2 ML VIAL SLOW IVP SCH (10:15)
[2019-09-09 10:35] LABS: #Lymphocytes 1.1 thou/uL (1.20-3.40); #Monocytes 0.5 thou/uL (0.11-0.59); #Neutrophils 5.7 thou/uL (1.40-6.50); %Basophils 0.1 % (0.0-1.0); %Eosinophils 0.4 % (0.0-10.0); %Lymphocytes 14.9 % (21.0-51.0); %Monocytes 6.6 % (0.0-10.0); Hemoglobin 11.7 g/dL (12.0-16.0); Mean Corpuscular HGB CONC 34.2 g/dL (32.0-36.0); Mean Corpuscular Hemoglobin 29.7 pg (27.0-31.0); Mean Corpuscular Volume 86.9 fL (78.0-98.0); Mean Platelet Volume 7.4 fL (7.4-10.4); Platelet Count 247 thou/uL (130-400); RBC Distribution Width 11.3 % (11.5-14.5); Red Blood Cell (RBC) Count 3.93 mill/uL (4.20-5.40); White Blood Cell (WBC) Count 7.3 thou/uL (4.8-10.8)
[2019-09-09 10:49] LABS: ALT (SGPT) 10 U/L (8-55); AST (SGOT) 12 U/L (5-34); Albumin 2.8 g/dL (3.4-4.8); Alkaline Phosphatase 128 U/L (40-110); Anion Gap 13 mmol/L (10-20); BUN (Urea Nitrogen) 10 mg/dL (9.8-20.1); Bilirubin, Total 0.8 mg/dL (0.2-1.2); Calc. Creatinine Clearance 108 mL/min (70-130); Calcium 8.7 mg/dL (7.8-10.44); Carbon Dioxide 30 mmol/L (23-31); Chloride 95 mmol/L (98-107); Estimated GFR-MDRD Greater than 90; Globulin 3.1 g/dL (2.4-3.5); Glucose 136 mg/dL (80-115); Potassium 3.6 mmol/L (3.5-5.1); Protein, Total 5.9 g/dL (6.0-8.3); Sodium 134 mmol/L (136-145)
--- NOTE | 2019-09-09 11:33 | CON ---
DATE OF CONSULTATION: HISTORY OF PRESENT ILLNESS: Ms. Koroma is a 64-year-old woman with stage IV right-sided breast cancer and recurrent bilateral pleural effusions. She has undergone thoracentesis recently of the right pleural effusion with good re-expansion of the right lung. Since that time, she has completely reaccumulated the effusion to its previous level. The effusion had malignant cells in it on pathology. I have been asked to see her to place a PleurX catheter. PAST MEDICAL HISTORY: Metastatic breast cancer. PAST SURGICAL HISTORY: None. CURRENT MEDICATIONS: At home, none. ALLERGIES: NONE. SOCIAL HISTORY: Unknown. PHYSICAL EXAMINATION: GENERAL: Currently, she is intubated on the ventilator. VITAL SIGNS: Height is 5 feet, weight is 159 pounds, pulse is 70 and regular, blood pressure is 123/58. LUNGS: She has diminished breath sounds bilaterally. She is intubated with 100% oxygen saturation. BREASTS: She has dressings over both of her breasts due to exophytic tumor. HEART: Rhythm is regular without murmur. ABDOMEN: Soft. LABORATORY DATA: Of note, hemoglobin is 11.7, white blood cell count is 7.3, platelet count is 11.3. Creatinine is 0.63, potassium is 3.8, sugars have been in the 200 to 250 range. ASSESSMENT AND PLAN: This is a 64-year-old woman who is currently intubated due to respiratory arrest during CAT scan. I have discussed the situation with her family and we will plan to place a PleurX catheter tomorrow. She has qualified for Medicaid due to her breast cancer and will be able to get bottles for the PleurX through that avenue. Job ID: [id number]
--- NOTE | 2019-09-09 14:11 | PDOC.HOSPP ---
- Subjective Encounter Date: 09/09/19 Subjective: Intubated, but awake. Tolerating vent well. - Objective Vital Signs & Weight: Vital Signs (12 hours) Temp Pulse Resp BP Pulse Ox 09/09/19 12:00 98.9 F 16 09/09/19 11:07 70 130/62 09/09/19 10:00 16 09/09/19 08:00 99.4 F 16 100 09/09/19 06:19 67 105/65 09/09/19 06:00 16 09/09/19 04:27 66 09/09/19 04:00 16 Weight Admit Weight 153 lb Weight 159 lb 13.362 oz Most Recent Monitor Data Heart Rate from ECG 69 NIBP 110/70 NIBP BP-Mean 83 Respiration from ECG 16 SpO2 97 I&O: 09/08/19 09/09/19 09/10/19 06:59 06:59 06:59 Intake Total 652.1 30 Output Total 1520 1005 Balance -867.9 -975 Result Diagrams: 09/09/19 10:25 09/09/19 10:25 Additional Labs: Accuchecks 09/09/19 09/09/19 09/08/19 11:56 00:27 17:11 POC Glucose 136 H 222 H 251 H Hospitalist ROS - Medication Medications: Active Medications Generic Name Dose Route Start Last Admin Trade Name Freq PRN Reason Stop Dose Admin Enoxaparin Sodium 70 mg 09/09/19 09:00 09/09/19 09:21 Lovenox SC 09/10/19 09:01 70 mg 0900,2100 JAROD Administration Potassium Chloride 40 meq/ 270 mls @ 135 mls/hr 09/04/19 18:18 09/05/19 06:00 Sodium Chloride IVPB 270 mls ASDIR PRN Administration FOR SERUM K+ 2.5 - 3.5 Sodium Chloride 1,000 mls @ 50 mls/hr 09/04/19 19:00 09/08/19 20:58 Normal Saline 0.9% IV 1,000 mls .Q20H JAROD Administration Insulin Human Lispro 0 units 09/07/19 09:26 09/09/19 00:31 Humalog SC 4 unit .MODERATE SLIDING SC PRN Administration Moderate Correctional Scale Pantoprazole Sodium 40 mg 09/05/19 09:00 09/09/19 09:20 Protonix IVP 40 mg DAILY JRAOD Administration Propofol 1,000 mg 09/08/19 18:21 09/09/19 04:49 Diprivan IV 10/08/19 18:21 1,000 mg INF PRN Administration TO ACHIEVE GOAL RASS Protocol Sodium Chloride 10 ml 09/05/19 09:00 09/09/19 09:20 Flush - Normal Saline IVF 10 ml Q12HR JAROD Administration - Exam General Appearance: NAD, awake alert Heart: RRR, no murmur, no gallops, no rubs, normal peripheral pulses Respiratory: CTAB, no wheezes, no rales, no ronchi, normal chest expansion, no tachypnea, normal percussion Respiratory - other findings: Diminished at bases. Gastrointestinal: soft, non-tender, non-distended, normal bowel sounds, no palpable masses, no hepatomegaly, no splenomegaly, no bruit Extremities: 1+ LE edema Extremities - other findings: UE's more than LE's. Skin: normal turgor Musculoskeletal: generalized weakness Psychiatric: normal affect, normal behavior Hosp A/P (1) Acute respiratory failure with hypoxia Code(s): J96.01 - ACUTE RESPIRATORY FAILURE WITH HYPOXIA Status: Acute (2) Bilateral pleural effusion Code(s): J90 - PLEURAL EFFUSION, NOT ELSEWHERE CLASSIFIED Status: Acute (3) Metastatic breast cancer Code(s): C50.919 - MALIGNANT NEOPLASM OF UNSP SITE OF UNSPECIFIED FEMALE BREAST Status: Acute (4) Diabetes mellitus Code(s): E11.9 - TYPE 2 DIABETES MELLITUS WITHOUT COMPLICATIONS Status: Acute (5) Pulmonary emboli Code(s): I26.99 - OTHER PULMONARY EMBOLISM WITHOUT ACUTE COR PULMONALE Status : Acute (6) HTN (hypertension) Code(s): I10 - ESSENTIAL (PRIMARY) HYPERTENSION Status: Acute - Plan Resp failure: Secondary to reaccumulated pleural effusions and PE's. S/P thoracentesis 09/03. Extubated 09/04, resp arrest with re-intubation on 09/07 secondary to recurrent effusions and PE's. Wean as tolerated. Pleural effusions: Malignant. S/P thoracentesis. Rapid reaccumulation. PleurX catheter tomorrow. Metastatic Inflammatory Breast Cancer: Mets to bilateral axillary nodes, thoracic nodes, lungs, bone. Path confirms metastatic breast cancer/malig effusion. Apparently she actually lives here and has her green card. She will be able to get breast cancer medicaid and get treatment here. She was getting work up when the resp arrest happened. No abdominal pathology noted. Onc following. DM: New diagnosis. SSI. Better control now. HTN: BP now better. No hx of htn. Dispo: PleurX catheter to drain effusion and see if we can wean her. She and her family seem to have a very difficult time understanding the situation and the gravity of it. Low healthcare IQ.
[2019-09-09] MEDS: Sodium Chloride 0.9% 1,000 ML IV SCH (14:16)
--- NOTE | 2019-09-09 16:50 | ULT ---
BILATERAL UPPER EXTREMITY VENOUS DOPPLER ULTRASOUND: Date: 09-09-2019 History: Breast cancer, edema. Bilateral pulmonary emboli. Technique: Multiplanar grayscale sonographic imaging of venous structures of the bilateral upper extr emities obtained with color flow and spectral analysis. FINDINGS: The internal jugular vein and subclavian vein appear patent on the right. There is a 2.5 cm hypoechoi c mass adjacent to the subclavian vein on the right suggesting metastatic lymphadenopathy. The sonogr apher was unable to compress the right axillary vein and thus DVT cannot be excluded. However, sonogr apher reports that the inability to compress the right axillary vein was likely technical in nature a s the patient was in restraints. The doppler imaging of the right axillary vein appears patent. The right cephalic vein, brachial vein, basilic vein, radial vein, and ulnar vein are patent. The left internal jugular vein appears patent. The provided imaging suggests retrograde blood flow wi thin the left internal jugular vein of uncertain etiology. The left subclavian vein and left axillary vein appear patent. The left brachial vein and left cephalic vein are patent. Within the left upper extremity there is a focal area of partial superficial thrombosis of the left basilic vein. Left radial vein and left ulna r vein are patent. IMPRESSION: 1. Findings suggesting metastatic lymphadenopathy adjacent to the right subclavian vein. 2. Left axillary vein could not be compression and thus, DVT cannot be excluded. However, the sonogra pher favors the inability to compress the vessel to be technical in nature. Perhaps when the patient is able, re-evaluation of this region would be beneficial. 3. Findings suggesting reversal of flow within a patent left internal jugular vein, etiology uncertai n. 4. Focal area of superficial venous thrombosis involving the left basilic vein. POS: [facility]
--- NOTE | 2019-09-09 16:52 | PRG ---
DATE OF SERVICE: 09/09/2019 SUBJECTIVE: Ms. Ga Hill tentatively is on the schedule tomorrow for a tunneled catheter. She will awaken when not sedated. Moves all of her extremities. Events yesterday have been reviewed. Apparently, she arrested in the CT scanner. CT pulmonary angiogram showed small thromboembolic events, but I suspect the reason she arrested was that she could not lay down flat with her large effusions and her extensive breast cancer with deconditioning and obesity. Her prognosis is quite guarded. OBJECTIVE: VITAL SIGNS: Heart rates in the 70s, blood pressure 147/77, respiratory rates in the teens. LUNGS: Unchanged. HEART: Unchanged. ABDOMEN: Unchanged. LABORATORY DATA: White count 7.3, hemoglobin 11.7, platelets 247. Sodium 134, potassium 3.6, chloride 95, bicarb 30, BUN 10, creatinine 0.6. PH 7.49, pCO2 of 35, pO2 of 74. IMPRESSION: 1. Respiratory failure associated with metastatic breast cancer. 2. Thromboembolic disease, that I do not believe contributed to her arrest. a. I do not feel that was the cause. b. The thromboembolic events were small and on the right. I do not feel that she needs bilateral pleural drainage catheters. I think it will be adequate to have her drained on one side. I suspect she will have to come into the hospital __ because of limited resources and limited ability to understand everything that is going on. Critical care time is 35 minutes. Job ID: [id number] MTDD
[2019-09-10 04:21] LABS: #Eosinphils 0.1 thou/uL (0.0-0.7); #Lymphocytes 1.1 thou/uL (1.20-3.40); #Monocytes 0.5 thou/uL (0.11-0.59); #Neutrophils 6.9 thou/uL (1.40-6.50); %Basophils 0.2 % (0.0-1.0); %Eosinophils 0.6 % (0.0-10.0); %Lymphocytes 12.9 % (21.0-51.0); %Monocytes 5.6 % (0.0-10.0); %Neutrophils 80.6 % (42.0-75.0); Hemoglobin 11.4 g/dL (12.0-16.0); Mean Corpuscular HGB CONC 33.3 g/dL (32.0-36.0); Mean Corpuscular Hemoglobin 29.2 pg (27.0-31.0); Mean Corpuscular Volume 87.7 fL (78.0-98.0); Mean Platelet Volume 7.9 fL (7.4-10.4); Platelet Count 240 thou/uL (130-400); RBC Distribution Width 11.4 % (11.5-14.5); Red Blood Cell (RBC) Count 3.92 mill/uL (4.20-5.40); White Blood Cell (WBC) Count 8.5 thou/uL (4.8-10.8)
[2019-09-10 04:41] LABS: ALT (SGPT) 11 U/L (8-55); AST (SGOT) 17 U/L (5-34); Albumin 2.7 g/dL (3.4-4.8); Alkaline Phosphatase 141 U/L (40-110); Anion Gap 15 mmol/L (10-20); BUN (Urea Nitrogen) 10 mg/dL (9.8-20.1); Bilirubin, Total 0.7 mg/dL (0.2-1.2); Calc. Creatinine Clearance 105 mL/min (70-130); Calcium 8.6 mg/dL (7.8-10.44); Carbon Dioxide 26 mmol/L (23-31); Chloride 97 mmol/L (98-107); Estimated GFR-MDRD Greater than 90; Globulin 3.2 g/dL (2.4-3.5); Glucose 125 mg/dL (80-115); Potassium 3.2 mmol/L (3.5-5.1); Protein, Total 5.9 g/dL (6.0-8.3); Sodium 135 mmol/L (136-145)
[2019-09-10] MEDS ORDERED: Fentanyl 100 MCG/2 ML VIAL ONE (07:17)
[2019-09-10] MEDS ORDERED: Midazolam HCl 2 mg/2 ml Vial ONE (07:17)
--- NOTE | 2019-09-10 08:19 | PRG ---
DATE OF SERVICE: 09/10/2019 The patient has been re-intubated because of respiratory failure. She has gone downstairs for PleurX catheter. OBJECTIVE: VITAL SIGNS: Temperature 99.4, pulse 73, blood pressure 141/77, O2 saturation 93%. Intake for 24 hours 1497, output 1398. HEENT: Unremarkable. NECK: No JVD. LUNGS: Clear, except to the bases. CARDIAC: S1, S2. Regular. ABDOMEN: Soft. EXTREMITIES: No edema. LABORATORY DATA: White blood cell count 8.5, hematocrit 34.4, platelet count 240. ABG pending. Sodium 135, potassium 3.2, chloride 97, CO2 of 26, BUN 10, creatinine 0.6, glucose 125. ASSESSMENT: 1. Malignant right pleural effusion. 2. Metastatic breast cancer. 3. Pulmonary emboli. PLAN: 1. PleurX catheter is being inserted. 2. Hopefully, we can extubate after that. 3. As far gone as her breast cancer is, her prognosis is extremely poor. I suspect she has no financial means of taking the appropriate treatment. Job ID: [id number]
[2019-09-10] MEDS: Enoxaparin Sodium 80 MG/0.8 ML SYRINGE SC SCH (09:03)
[2019-09-10] MEDS: Pantoprazole 40 MG VIAL IVP SCH (09:13)
--- NOTE | 2019-09-10 09:23 | OP ---
DATE OF PROCEDURE: 09/10/2019 PREOPERATIVE DIAGNOSIS: Malignant recurrent right pleural effusion. POSTOPERATIVE DIAGNOSIS: Malignant recurrent right pleural effusion. PROCEDURE PERFORMED: Right PleurX catheter placement. ANESTHESIA: General endotracheal. ESTIMATED BLOOD LOSS: Minimal. DESCRIPTION OF PROCEDURE: After consent was obtained from the family, the patient was brought to the operating room, intubated under general anesthesia. She was placed in supine position on the operating room table. Right chest wall was prepped and draped in usual sterile fashion. Chest wall was anesthetized with 1% lidocaine. A tunneled PleurX catheter was then placed. 1200 mL of fluid was aspirated. The catheter was secured with silk drain stitch. The patient was then transported back to the ICU in critical condition. Job ID: [id number]
[2019-09-10] MEDS: Sodium Chloride 0.9% 1,000 ML IV SCH (11:14)
--- NOTE | 2019-09-10 14:36 | PDOC.MOPN ---
Interval History: reintubated after CT scan, remains on vent. - Vital Signs Vital Signs: Vital Signs (12 hours) Temp Pulse Resp BP Pulse Ox 09/10/19 14:09 56 L 114/65 09/10/19 14:00 16 09/10/19 12:00 16 09/10/19 10:26 64 124/80 09/10/19 10:00 99.1 F 16 09/10/19 08:00 16 98 09/10/19 07:00 99.4 F 09/10/19 06:44 59 L 125/66 09/10/19 06:00 16 09/10/19 04:39 67 09/10/19 04:00 98.7 F 16 Weight Admit Weight 153 lb Weight 161 lb 13.109 oz Most Recent Monitor Data Heart Rate from ECG 65 NIBP 114/65 NIBP BP-Mean 81 Respiration from ECG 15 SpO2 100 - Physical Exam General: Other (sedated) Lungs: Clear to auscultation Cardiovascular: Regular rate Abdomen: Normal bowel sounds Neurological: Other - Labs Result Diagrams: 09/10/19 04:00 09/10/19 04:00 Lab results: Laboratory Results - last 24 hr 09/10/19 04:00: WBC 8.5, RBC 3.92 L, Hgb 11.4 L, Hct 34.4 L, MCV 87.7, MCH 29.2 , MCHC 33.3, RDW 11.4 L, Plt Count 240, MPV 7.9, Neutrophils % 80.6 H, Lymphocytes % 12.9 L, Monocytes % 5.6, Eosinophils % 0.6, Basophils % 0.2, Neutrophils # 6.9 H, Lymphocytes # 1.1 L, Monocytes # 0.5, Eosinophils # 0.1, Basophils # 0.0 09/10/19 04:00: Sodium 135 L, Potassium 3.2 L, Chloride 97 L, Carbon Dioxide 26 , Anion Gap 15, BUN 10, Creatinine 0.62, Estimated GFR (MDRD) Greater than 90, Glucose 125 H, Calcium 8.6, Total Bilirubin 0.7, AST 17, ALT 11, Alkaline Phosphatase 141 H, Serum Total Protein 5.9 L, Albumin 2.7 L, Globulin 3.2, Albumin/Globulin Ratio 0.8 L 09/09/19 17:56: POC Glucose 142 H 09/09/19 06:28: POC Glucose 142 H Status: lab reviewed by me A/P - Problem (1) Acute respiratory failure with hypoxia Current Visit: Yes Code(s): J96.01 - ACUTE RESPIRATORY FAILURE WITH HYPOXIA Status: Acute (2) Bilateral pleural effusion Current Visit: Yes Code(s): J90 - PLEURAL EFFUSION, NOT ELSEWHERE CLASSIFIED Status: Acute (3) Metastatic breast cancer Current Visit: Yes Code(s): C50.919 - MALIGNANT NEOPLASM OF UNSP SITE OF UNSPECIFIED FEMALE BREAST Status: Acute - Plan Plan: daily pleurx cath drainage, 1200 ml this am wean when possible further scanning once stable.
--- NOTE | 2019-09-10 15:01 | PDOC.HOSPP ---
- Subjective Encounter Date: 09/10/19 Subjective: Intubated. - Objective Vital Signs & Weight: Vital Signs (12 hours) Temp Pulse Resp BP Pulse Ox 09/10/19 14:09 56 L 114/65 09/10/19 14:00 16 09/10/19 12:00 16 09/10/19 10:26 64 124/80 09/10/19 10:00 99.1 F 16 09/10/19 08:00 16 98 09/10/19 07:00 99.4 F 09/10/19 06:44 59 L 125/66 09/10/19 06:00 16 09/10/19 04:39 67 09/10/19 04:00 98.7 F 16 Weight Admit Weight 153 lb Weight 161 lb 13.109 oz Most Recent Monitor Data Heart Rate from ECG 65 NIBP 114/65 NIBP BP-Mean 81 Respiration from ECG 15 SpO2 100 I&O: 09/09/19 09/10/19 09/11/19 06:59 06:59 06:59 Intake Total 652.1 1497.3 100 Output Total 1520 1398 120 Balance -867.9 99.3 -20 Result Diagrams: 09/10/19 04:00 09/10/19 04:00 Additional Labs: Accuchecks 09/09/19 09/09/19 17:56 06:28 POC Glucose 142 H 142 H Hospitalist ROS - Medication Medications: Active Medications Generic Name Dose Route Start Last Admin Trade Name Freq PRN Reason Stop Dose Admin Potassium Chloride 40 meq/ 270 mls @ 135 mls/hr 09/04/19 18:18 09/05/19 06:00 Sodium Chloride IVPB 270 mls ASDIR PRN Administration FOR SERUM K+ 2.5 - 3.5 Potassium Chloride 40 meq/ 100 mls @ 50 mls/hr 09/04/19 18:18 09/10/19 04:57 Device IVPB 100 mls ASDIR PRN Administration FOR SERUM K+ 2.5 - 3.5 Sodium Chloride 1,000 mls @ 50 mls/hr 09/04/19 19:00 09/10/19 11:14 Normal Saline 0.9% IV 1,000 mls .Q20H JAROD Administration Insulin Human Lispro 0 units 09/07/19 09:26 09/09/19 00:31 Humalog SC 4 unit .MODERATE SLIDING SC PRN Administration Moderate Correctional Scale Pantoprazole Sodium 40 mg 09/05/19 09:00 09/10/19 09:13 Protonix IVP 40 mg DAILY JAROD Administration Propofol 1,000 mg 09/08/19 18:21 09/09/19 22:31 Diprivan IV 10/08/19 18:21 1,000 mg INF PRN Administration TO ACHIEVE GOAL RASS Protocol Sodium Chloride 10 ml 09/05/19 09:00 09/10/19 09:13 Flush - Normal Saline IVF 10 ml Q12HR JAROD Administration - Exam General Appearance: NAD, awake alert Heart: RRR, no murmur, no gallops, no rubs, normal peripheral pulses Respiratory: CTAB Respiratory - other findings: Diminished Gastrointestinal: soft, non-tender, non-distended, normal bowel sounds, no palpable masses, no hepatomegaly, no splenomegaly, no bruit Skin: normal turgor Musculoskeletal: normal tone Psychiatric: normal affect, normal behavior, A&O x 3 Hosp A/P (1) Acute respiratory failure with hypoxia Code(s): J96.01 - ACUTE RESPIRATORY FAILURE WITH HYPOXIA Status: Acute (2) Bilateral pleural effusion Code(s): J90 - PLEURAL EFFUSION, NOT ELSEWHERE CLASSIFIED Status: Acute (3) Metastatic breast cancer Code(s): C50.919 - MALIGNANT NEOPLASM OF UNSP SITE OF UNSPECIFIED FEMALE BREAST Status: Acute (4) Diabetes mellitus Code(s): E11.9 - TYPE 2 DIABETES MELLITUS WITHOUT COMPLICATIONS Status: Acute (5) Pulmonary emboli Code(s): I26.99 - OTHER PULMONARY EMBOLISM WITHOUT ACUTE COR PULMONALE Status : Acute (6) HTN (hypertension) Code(s): I10 - ESSENTIAL (PRIMARY) HYPERTENSION Status: Acute (7) DVT (deep venous thrombosis) Code(s): I82.409 - ACUTE EMBOLISM AND THOMBOS UNSP DEEP VN UNSP LOWER EXTREMITY Status: Acute - Plan Resp failure: Secondary to reaccumulated pleural effusions and PE's. S/P thoracentesis 09/03. Extubated 09/04, resp arrest with re-intubation on 09/07 secondary to recurrent effusions and PE's. Thoracentesis with pleurX catheter 09/09. Wean as tolerated. Pleural effusions: Malignant. S/P thoracentesis, recurrence and PleurX catheter placement. Bilateral. Metastatic Inflammatory Breast Cancer: Mets to bilateral axillary nodes, thoracic nodes, lungs, bone. Path confirms metastatic breast cancer/malig effusion. No abdominal pathology noted. Onc following. DM: New diagnosis. SSI. Better control now. HTN: BP now better. No hx of htn. Dispo: PleurX catheter to drain effusion and see if we can wean her. She and her family seem to have a very difficult time understanding the situation and the gravity of it. Low healthcare IQ. PE / Possible DVT LUE: Had midline IV removed. On anticoagulation with Lovenox.
[2019-09-10] MEDS: hydrALAZINE 20 MG/ML VIAL SLOW IVP PRN ×2 (15:37→16:38)
[2019-09-10] MEDS: Morphine 2 MG/ML SYRINGE SLOW IVP PRN ×2 (16:01→17:28)
[2019-09-10] MEDS ORDERED: niCARdipine 40MG In NaCl 40 MG/200 ML BAG IVPB SCH (16:45)
[2019-09-10] MEDS: niCARdipine 50 MG in Sodium Chloride 0.9% 250 ML 230 ML IV SCH ×2 (17:32→22:57)
[2019-09-10] MEDS ORDERED: Furosemide 40 MG/4 ML VIAL ONE (17:40)
[2019-09-10] MEDS ORDERED: Lorazepam 2 MG/ML VIAL SLOW IVP SCH (17:45)
[2019-09-10] MEDS ORDERED: Furosemide 40 MG/4 ML VIAL SLOW IVP SCH (17:45)
[2019-09-10] MEDS: HumaLOG 300 UNITS/3 ML VIAL SC PRN ×2 (18:26→22:34)
[2019-09-11 04:25] LABS: #Basophils 0.1 thou/uL (0.0-0.2); #Eosinphils 0.1 thou/uL (0.0-0.7); #Lymphocytes 0.8 thou/uL (1.20-3.40); #Monocytes 0.5 thou/uL (0.11-0.59); #Neutrophils 8.5 thou/uL (1.40-6.50); %Basophils 0.8 % (0.0-1.0); %Eosinophils 0.6 % (0.0-10.0); %Lymphocytes 8.2 % (21.0-51.0); %Monocytes 5.2 % (0.0-10.0); %Neutrophils 85.3 % (42.0-75.0); Mean Corpuscular HGB CONC 31.1 g/dL (32.0-36.0); Mean Corpuscular Hemoglobin 27.4 pg (27.0-31.0); Mean Corpuscular Volume 87.9 fL (78.0-98.0); Platelet Count 261 thou/uL (130-400); RBC Distribution Width 11.5 % (11.5-14.5); Red Blood Cell (RBC) Count 4.39 mill/uL (4.20-5.40)
[2019-09-11 04:52] LABS: ALT (SGPT) 23 U/L (8-55); AST (SGOT) 26 U/L (5-34); Albumin 2.8 g/dL (3.4-4.8); Alkaline Phosphatase 291 U/L (40-110); Anion Gap 15 mmol/L (10-20); BUN (Urea Nitrogen) 15 mg/dL (9.8-20.1); Bilirubin, Total 0.6 mg/dL (0.2-1.2); Calc. Creatinine Clearance 106 mL/min (70-130); Calcium 8.6 mg/dL (7.8-10.44); Carbon Dioxide 28 mmol/L (23-31); Chloride 100 mmol/L (98-107); Estimated GFR-MDRD Greater than 90; Globulin 3.6 g/dL (2.4-3.5); Glucose 141 mg/dL (80-115); Potassium 3.8 mmol/L (3.5-5.1); Protein, Total 6.4 g/dL (6.0-8.3); Sodium 139 mmol/L (136-145)
--- NOTE | 2019-09-11 07:53 | PRG ---
DATE OF SERVICE: 09/11/2019 35 minutes of critical care time. SUBJECTIVE: The patient remains intermittently on BiPAP. She has been hypoxic since extubation yesterday. She did get comfortable on the BiPAP and was able to be weaned off the nicardipine drip last night. OBJECTIVE: VITAL SIGNS: Temperature is 97.9, pulse 84, blood pressure 131/72, O2 saturation 93% on BiPAP, in the high 80s on nasal cannula. Intake 1745, output 1035. HEENT: Unremarkable. NECK: No adenopathy or JVD. LUNGS: Diminished breath sounds in both bases. CARDIOVASCULAR: S1, S2. Regular. BREASTS: Peau d'orange change in the right breast. ABDOMEN: Soft. EXTREMITIES: No edema. LABORATORY DATA: White blood cell count 10, hematocrit 30.6, and platelet count 261. Sodium 139, potassium 3.8, chloride 100, CO2 of 28, BUN 15, creatinine 0.6, glucose 141. ASSESSMENT: 1. Bilateral pleural effusions-malignant. 2. Metastatic breast cancer. 3. Pulmonary emboli. PLAN: Very difficult situation. Needs to be restarted on anticoagulation. Remain in ICU for now because of severe hypoxemia, intermittent need for BiPAP. I am not sure whether or not she is a candidate for chemotherapy. If she is deemed not to be a candidate for chemo, then I would suggest Hospice care. Job ID: [id number]
[2019-09-11] MEDS: Enoxaparin Sodium 80 MG/0.8 ML SYRINGE SC SCH ×2 (09:05→19:43)
[2019-09-11] MEDS: Pantoprazole 40 MG VIAL IVP SCH (09:06)
[2019-09-11] MEDS: Sodium Chloride 0.9% 1,000 ML IV SCH (09:06)
[2019-09-11] MEDS: Morphine 2 MG/ML SYRINGE SLOW IVP PRN ×5 (09:27→23:37)
[2019-09-11] MEDS: HumaLOG 300 UNITS/3 ML VIAL SC PRN ×2 (10:43→17:18)
[2019-09-11] MEDS ORDERED: Furosemide 20 MG/2 ML VIAL SLOW IVP SCH (14:00)
--- NOTE | 2019-09-11 14:00 | PDOC.HOSPP ---
- Subjective Encounter Date: 09/11/19 Encounter Time: 01:00 Subjective: The patient is on 5L nasal cannula, BIPAP intermittently. SHe reports feeling tired and appears short of breath. She denies chest pain. - Objective Vital Signs & Weight: Vital Signs (12 hours) Temp Pulse Pulse Ox 09/11/19 11:00 98.4 F 09/11/19 08:00 97 09/11/19 07:00 97.7 F 09/11/19 06:43 92 09/11/19 05:00 97.9 F 09/11/19 02:25 82 97 Weight Admit Weight 153 lb Weight 155 lb 3.287 oz Most Recent Monitor Data Heart Rate from ECG 73 NIBP 97/74 NIBP BP-Mean 81 Respiration from ECG 17 SpO2 100 I&O: 09/10/19 09/11/19 09/12/19 06:59 06:59 06:59 Intake Total 1497.3 1745.6 10 Output Total 1398 1032 230 Balance 99.3 713.6 -220 Result Diagrams: 09/11/19 04:15 09/11/19 04:15 Additional Labs: Accuchecks 09/11/19 09/10/19 09/10/19 10:45 22:36 18:24 POC Glucose 180 H 190 H 198 H 09/10/19 09/10/19 12:46 04:41 POC Glucose 118 H 117 H Hospitalist ROS - Review of Systems Constitutional: denies: fever, chills - Medication Medications: Active Medications Generic Name Dose Route Start Last Admin Trade Name Freq PRN Reason Stop Dose Admin Enoxaparin Sodium 70 mg 09/11/19 09:00 09/11/19 09:05 Lovenox SC 70 mg 0900,2100 JAROD Administration Hydralazine HCl 10 mg 09/07/19 09:24 09/10/19 16:38 Apresoline SLOW IVP 10 mg Q4H PRN Administration SBP > 185, DBP > 105 Potassium Chloride 40 meq/ 270 mls @ 135 mls/hr 09/04/19 18:18 09/05/19 06:00 Sodium Chloride IVPB 270 mls ASDIR PRN Administration FOR SERUM K+ 2.5 - 3.5 Potassium Chloride 40 meq/ 100 mls @ 50 mls/hr 09/04/19 18:18 09/10/19 04:57 Device IVPB 100 mls ASDIR PRN Administration FOR SERUM K+ 2.5 - 3.5 Nicardipine HCl 50 mg/ Sodium 250 mls @ 0 mls/hr 09/10/19 17:15 09/10/19 22: 57 Chloride IV 250 mls INF JAROD Administration Protocol Per Protocol Insulin Human Lispro 0 units 09/07/19 09:26 09/11/19 10:43 Humalog SC 2 unit .MODERATE SLIDING SC PRN Administration Moderate Correctional Scale Morphine Sulfate 2 mg 09/08/19 18:21 09/11/19 09:27 Morphine SLOW IVP 10/08/19 18:21 2 mg Q1H PRN Administration BREAKTHROUGH PAIN/Agitation Pantoprazole Sodium 40 mg 09/05/19 09:00 09/11/19 09:06 Protonix IVP 40 mg DAILY JAROD Administration Propofol 1,000 mg 09/08/19 18:21 09/09/19 22:31 Diprivan IV 10/08/19 18:21 1,000 mg INF PRN Administration TO ACHIEVE GOAL RASS Protocol Sodium Chloride 10 ml 09/05/19 09:00 09/11/19 09:07 Flush - Normal Saline IVF 10 ml Q12HR JAROD Administration - Exam General Appearance: NAD, awake alert Eye: PERRL, anicteric sclera ENT: normocephalic atraumatic, no oropharyngeal lesions Neck: no JVD Heart: RRR, no murmur, no gallops, no rubs Respiratory - other findings: d Gastrointestinal: soft, non-tender, non-distended, normal bowel sounds Extremities: no cyanosis, no clubbing, 2+ LE edema Skin: normal turgor, no lesions, no rashes Skin - other findings: large right breast mass Neurological: cranial nerve grossly intact, normal sensation to touch, no focal deficits, no new deficit Musculoskeletal: normal tone, normal strength, no muscle wasting Hosp A/P - Plan Bilateral upper extremity venous doppler: metastatic lymphadenopathy adjacent to the right subclavian vein. left axilary vein could not be compressed and DVT not excluded. Left basilic vein supeficial venous thrombosis CTA thorax 09/07: numerous small pulmonary emboli in the right pulmonary arteries. large bilateral pleural effusions. Congestive change with edema. Numerous pulmonary nodules and adenopathy adn right breast mass. Subcutaneous edema and anasarca Chest X ray 09/04: vascular congestion with evidence of bilateral edema/ infiltrates. CT abdomen pelvis: large amount of pleural effusion with pulmonary edema and consolidation/atleectasis in the RML. Right breast mass with subcutaneous edema CTA thorax 09/03: moderate prominent bilateral pleural effusions. PUlmonary metastatic disease. INfiltrating mass right breast, extensive adenopathy within the right axilla and preprectoral regions. Largest lymph node in right axilla 2.7 cm. Large supraclavicular lymph node 2.3 cm, large left axillary lymphadenopathy, prominent mediastinal and hilar lymphadenopathy. Diffuse anasarca. Osteolytic lesion in left 9th posterior irb, osteolytic lesion in right aspect of manubrium Acute hypoxic respiratory failure secondary to pulmonary edema. metastatic breast cancer to the lung, pulmonary embolism - on BIPAP prn, and 6L nasal cannula - will try diurese with 20 mg IV lasix if BP > 100 - s/p pleurex catheter placement - continue therapeutic lovenox - check dopplers lower extremities Metastatic breast cancer to lungs, lymph node, 9th rib, right manubrium - thoracentesis showed ER+, CO+ breast cancer, carcinoma identified in pleural fluid - appreciate oncology recommendations Left basilic vein superficial thrombosis - continue lovenox bid Type II diabetes - hemoglobin A1C 10.7 - blood sugars controlled DVT prophylaxis: therapeutic lovenox Code status: full code
--- NOTE | 2019-09-11 15:50 | PDOC.MOPN ---
Interval History: on bpap, seem at bedside with SVETLANA Malloy with PCT - Vital Signs Vital Signs: Vital Signs (12 hours) Temp Pulse Pulse Ox 09/11/19 11:00 98.4 F 09/11/19 08:00 97 09/11/19 07:00 97.7 F 09/11/19 06:43 92 09/11/19 05:00 97.9 F Weight Admit Weight 153 lb Weight 155 lb 3.287 oz Most Recent Monitor Data Heart Rate from ECG 95 NIBP 173/88 NIBP BP-Mean 116 Respiration from ECG 40 SpO2 88 - Physical Exam General: Alert HEENT: Atraumatic Lungs: Other Cardiovascular: Regular rate Abdomen: Normal bowel sounds Neurological: Other - Labs Result Diagrams: 09/11/19 04:15 09/11/19 04:15 Lab results: Laboratory Results - last 24 hr 09/11/19 10:45: POC Glucose 180 H 09/11/19 04:15: WBC 10.0, RBC 4.39, Hgb 12.0, Hct 38.6, MCV 87.9, MCH 27.4, MCHC 31.1 L, RDW 11.5, Plt Count 261, MPV 7.0 L, Neutrophils % 85.3 H, Lymphocytes % 8.2 L, Monocytes % 5.2, Eosinophils % 0.6, Basophils % 0.8, Neutrophils # 8.5 H, Lymphocytes # 0.8 L, Monocytes # 0.5, Eosinophils # 0.1, Basophils # 0.1 09/11/19 04:15: Sodium 139, Potassium 3.8, Chloride 100, Carbon Dioxide 28, Anion Gap 15, BUN 15, Creatinine 0.62, Estimated GFR (MDRD) Greater than 90, Glucose 141 H, Calcium 8.6, Total Bilirubin 0.6, AST 26, ALT 23, Alkaline Phosphatase 291 H, Serum Total Protein 6.4, Albumin 2.8 L, Globulin 3.6 H, Albumin/Globulin Ratio 0.8 L 09/10/19 22:36: POC Glucose 190 H 09/10/19 18:24: POC Glucose 198 H 09/10/19 12:46: POC Glucose 118 H 09/10/19 04:41: POC Glucose 117 H 09/08/19 15:10: CA 27-29 1385.4 H Status: lab reviewed by me A/P - Problem (1) Acute respiratory failure with hypoxia Current Visit: Yes Code(s): J96.01 - ACUTE RESPIRATORY FAILURE WITH HYPOXIA Status: Acute (2) Bilateral pleural effusion Current Visit: Yes Code(s): J90 - PLEURAL EFFUSION, NOT ELSEWHERE CLASSIFIED Status: Acute (3) Metastatic breast cancer Current Visit: Yes Code(s): C50.919 - MALIGNANT NEOPLASM OF UNSP SITE OF UNSPECIFIED FEMALE BREAST Status: Acute - Plan Plan: Discussed that all care is palliative. Letrazole ordered today Continue drainage from pleurx cath Patient wants to remain full code
--- NOTE | 2019-09-11 17:02 | ULT ---
BILATERAL LOWER EXTREMITY VENOUS DOPPLER 09/11/19 PROVIDED CLINICAL HISTORY: Pulmonary emboli. FINDINGS: Kenny scale and color Doppler sonography with spectral analysis was performed of the right bilateral c ommon femoral, femoral, popliteal, posterior tibial, greater saphenous and profunda femoral veins dem onstrating a normal sonographic appearance to each. IMPRESSION: No sonographic evidence for lower extremity deep venous thrombosis. POS: AYLIN
--- NOTE | 2019-09-11 17:34 | PDOC.PALPN ---
Palliative Progress Note - Subjective Short of breath, smiling - Objective Vital Signs: Vital Signs - Most Recent Temp Pulse Resp BP Pulse Ox 97.9 F 92 22 H 191/117 H 97 09/11/19 16:00 09/11/19 06:43 09/10/19 14:51 09/10/19 16:38 09/11/19 08:00 - Physical Exam Constitutional: ill appearing, mild distress HEENT: sclera anicteric Respiratory: diminished lung sound, labored respirations Cardiovascular: RRR Gastrointestinal: non-tender Genitourinary: cardoso catheter Musculoskeletal: no clubbing, edema present Neurology: moves all 4 limbs Skin: fragile Deviation from normal: wound to breast - Assessment (1) Palliative care encounter Code(s): Z51.5 - ENCOUNTER FOR PALLIATIVE CARE Current Visit: Yes Status: Acute (2) Diabetes mellitus Code(s): E11.9 - TYPE 2 DIABETES MELLITUS WITHOUT COMPLICATIONS Current Visit : Yes Status: Acute (3) Metastatic breast cancer Code(s): C50.919 - MALIGNANT NEOPLASM OF UNSP SITE OF UNSPECIFIED FEMALE BREAST Current Visit: Yes Status: Acute - Plan Plan: Utilized wire stitcher machine to visit with patient. Lin Phillips communicated overall prognosis of cancer and that treatment is palliative not curative. Followed up in addressing DNAR status and desire related to resuscitation measures. Communicated that she desires to have full resuscitation measures. Also relayed that she desires to continue with aggressive measures. Will continue with emotional support and revisiting prognosis and Goal of Care. [30] minutes spent on this encounter with >50% of the time in counseling and coordination of care. - ROS Constitutional: weakness ENT: alteration in dentition Respiratory: shortness of breath with extertion Cardiology: light headedness Skin: wounds
[2019-09-11] MEDS: hydrALAZINE 20 MG/ML VIAL SLOW IVP PRN ×2 (20:42→23:51)
[2019-09-12] MEDS: Morphine 2 MG/ML SYRINGE SLOW IVP PRN ×4 (03:38→16:57)
[2019-09-12] MEDS: hydrALAZINE 20 MG/ML VIAL SLOW IVP PRN (03:39)
[2019-09-12] MEDS: HumaLOG 300 UNITS/3 ML VIAL SC PRN ×4 (06:33→21:16)
--- NOTE | 2019-09-12 08:01 | PRG ---
DATE OF SERVICE: 09/12/2019 SUBJECTIVE: The patient remains on noninvasive ventilation, appears more comfortable than she has been. OBJECTIVE: VITAL SIGNS: Her temperature is 98.3, pulse 93, blood pressure 141/102, O2 saturation 97%, currently off nicardipine drip. A 24-hour intake 933, output 1630. HEENT: Unremarkable. NECK: No JVD. LUNGS: Diminished breath sounds at both bases. CARDIOVASCULAR: S1, S2. Regular. ABDOMEN: Soft. EXTREMITIES: Edematous arms. LABORATORY DATA: No new labs were done today. ASSESSMENT: 1. Metastatic breast cancer. 2. Bilateral pleural effusions, right greater than left, with x-ray today showing reaccumulation of right effusion. 3. Chronic hypoxic respiratory failure secondary to pleural effusions and pulmonary emboli. PLAN: 1. Continue anticoagulation. 2. Drain PleurX catheter today. 3. Prognosis is extremely poor. Apparently, the patient is going to remain full code. I do not see a good prognosis. Job ID: [id number]
--- NOTE | 2019-09-12 08:13 | RAD ---
Exam: Chest one view HISTORY:Unknown pneumonia Comparison: 09/08/2019 FINDINGS: Lines and tubes: Stable left-sided vascular catheter. Interval removal of endotracheal tube. Cardiac silhouette:Enlarged cardiac silhouette. Aorta: Unremarkable Pulmonary vessels: Normal Costophrenic angles: Bilateral pleural effusions. LUNGS: Bibasilar parenchymal opacities. Additional scattered interstitial opacities in the visualized upper lobes. Pneumothorax: None Osseous abnormalities: None IMPRESSION: 1. Interval removal of endotracheal tube. 2. Bilateral pleural effusions. 3. Interstitial opacities likely due to edema or infiltrate. Continued surveillance is recommended.
[2019-09-12] MEDS: Enoxaparin Sodium 80 MG/0.8 ML SYRINGE SC SCH ×2 (09:32→21:14)
[2019-09-12] MEDS: Pantoprazole 40 MG VIAL IVP SCH (09:33)
[2019-09-12] MEDS: Furosemide 20 MG/2 ML VIAL SLOW IVP SCH (11:14)
[2019-09-12] MEDS: Carvedilol 6.25 MG TAB PO SCH ×2 (11:14→16:40)
[2019-09-12] MEDS: Letrozole 2.5 MG TAB PO SCH (11:14)
--- NOTE | 2019-09-12 15:57 | PDOC.HOSPP ---
- Subjective Encounter Date: 09/12/19 Encounter Time: 13:00 Subjective: The patient states she feels better. She still feels tired. Her cough has improved. She denies congestion. She has been wearing the BIPAP frequently still per nursing staff. Urine output has improved, she received lasix 20 mg IV this morning. - Objective Vital Signs & Weight: Vital Signs (12 hours) Temp Pulse BP Pulse Ox 09/12/19 12:00 98.3 F 09/12/19 11:14 167/106 H 09/12/19 10:27 90 09/12/19 08:00 98.1 F 99 09/12/19 06:00 98.3 F Weight Admit Weight 153 lb 7.07 oz Weight 157 lb 13.6 oz Most Recent Monitor Data Heart Rate from ECG 81 NIBP 158/103 NIBP BP-Mean 121 Respiration from ECG 24 SpO2 94 I&O: 09/11/19 09/12/19 09/13/19 06:59 06:59 06:59 Intake Total 1745.6 933 480 Output Total 1032 1630 290 Balance 713.6 -697 190 Result Diagrams: 09/11/19 04:15 09/11/19 04:15 Additional Labs: Accuchecks 09/12/19 09/12/19 09/12/19 11:39 05:50 01:23 POC Glucose 240 H 207 H 145 H 09/11/19 17:11 POC Glucose 228 H Hospitalist ROS - Review of Systems Constitutional: denies: fever, chills - Medication Medications: Active Medications Generic Name Dose Route Start Last Admin Trade Name Freq PRN Reason Stop Dose Admin Carvedilol 6.25 mg 09/12/19 08:00 09/12/19 11:14 Coreg PO 6.25 mg BID-WM JAROD Administration Enoxaparin Sodium 70 mg 09/11/19 09:00 09/12/19 09:32 Lovenox SC 70 mg 0900,2100 JAROD Administration Furosemide 20 mg 09/12/19 09:00 09/12/19 11:14 Lasix SLOW IVP 20 mg DAILY JAROD Administration Hydralazine HCl 10 mg 09/07/19 09:24 09/12/19 03:39 Apresoline SLOW IVP 10 mg Q4H PRN Administration SBP > 185, DBP > 105 Potassium Chloride 40 meq/ 270 mls @ 135 mls/hr 09/04/19 18:18 09/05/19 06:00 Sodium Chloride IVPB 270 mls ASDIR PRN Administration FOR SERUM K+ 2.5 - 3.5 Potassium Chloride 40 meq/ 100 mls @ 50 mls/hr 09/04/19 18:18 09/10/19 04:57 Device IVPB 100 mls ASDIR PRN Administration FOR SERUM K+ 2.5 - 3.5 Nicardipine HCl 50 mg/ Sodium 250 mls @ 0 mls/hr 09/10/19 17:15 09/10/19 22: 57 Chloride IV 250 mls INF JAROD Administration Protocol Per Protocol Insulin Human Lispro 0 units 09/07/19 09:26 09/12/19 11:39 Humalog SC 4 unit .MODERATE SLIDING SC PRN Administration Moderate Correctional Scale Letrozole 2.5 mg 09/12/19 09:00 09/12/19 11:14 Femara PO 2.5 mg DAILY JAROD Administration Morphine Sulfate 2 mg 09/08/19 18:21 09/11/19 20:27 Morphine SLOW IVP 10/08/19 18:21 2 mg Q1H PRN Administration BREAKTHROUGH PAIN/Agitation Morphine Sulfate 2 mg 09/10/19 16:22 09/12/19 13:44 Morphine SLOW IVP 2 mg Q1H PRN Administration Dyspnea Pantoprazole Sodium 40 mg 09/05/19 09:00 09/12/19 09:33 Protonix IVP 40 mg DAILY JAROD Administration Propofol 1,000 mg 09/08/19 18:21 09/09/19 22:31 Diprivan IV 10/08/19 18:21 1,000 mg INF PRN Administration TO ACHIEVE GOAL RASS Protocol Sodium Chloride 10 ml 09/05/19 09:00 09/12/19 09:34 Flush - Normal Saline IVF 10 ml Q12HR JAROD Administration - Exam General Appearance: NAD, awake alert Eye: PERRL, anicteric sclera ENT: normocephalic atraumatic, no oropharyngeal lesions Neck: supple, symmetric, no JVD, no thyromegaly, no carotid bruit Heart: RRR, no murmur, no gallops, no rubs Respiratory - other findings: diminished breath sounds bilaterally Gastrointestinal: soft, non-tender, non-distended, normal bowel sounds Extremities: no cyanosis, no clubbing, no edema Skin: normal turgor, no lesions, no rashes Neurological: cranial nerve grossly intact, normal sensation to touch, no focal deficits, no new deficit Hosp A/P - Plan Bilateral upper extremity venous doppler: metastatic lymphadenopathy adjacent to the right subclavian vein. left axilary vein could not be compressed and DVT not excluded. Left basilic vein supeficial venous thrombosis CTA thorax 09/07: numerous small pulmonary emboli in the right pulmonary arteries. large bilateral pleural effusions. Congestive change with edema. Numerous pulmonary nodules and adenopathy adn right breast mass. Subcutaneous edema and anasarca Chest X ray 09/04: vascular congestion with evidence of bilateral edema/ infiltrates. CT abdomen pelvis: large amount of pleural effusion with pulmonary edema and consolidation/atleectasis in the RML. Right breast mass with subcutaneous edema CTA thorax 09/03: moderate prominent bilateral pleural effusions. PUlmonary metastatic disease. INfiltrating mass right breast, extensive adenopathy within the right axilla and preprectoral regions. Largest lymph node in right axilla 2.7 cm. Large supraclavicular lymph node 2.3 cm, large left axillary lymphadenopathy, prominent mediastinal and hilar lymphadenopathy. Diffuse anasarca. Osteolytic lesion in left 9th posterior irb, osteolytic lesion in right aspect of manubrium Chest X ray 09/07: bilateral pleural effusions, interstitial opacities Acute hypoxic respiratory failure secondary to pulmonary edema. metastatic breast cancer to the lung, pulmonary embolism - on BIPAP prn and nasal cannula - continue IV lasix 20 mg for pulmonary edema. Repeat X ray tomorrow - needs pleurex catheter drainage - continue therapeutic lovenox for pulmonary embolism - dopplers negative for DVT Metastatic breast cancer to lungs, lymph node, 9th rib, right manubrium - thoracentesis showed ER+, SD+ breast cancer, carcinoma identified in pleural fluid -started on letrazole Left basilic vein superficial thrombosis - continue lovenox bid Type II diabetes - hemoglobin A1C 10.7 - start lantus 6 units qhs Dispo: pending iprovement in O2 requirement Diet: currently NPO due to being on BIPAP DVT prophylaxis: therapeutic lovenox Code status: full code
[2019-09-12] MEDS: Insulin Glargine 6 UNITS in Pre-Filled Syringe 1 EACH SC SCH (21:14)
[2019-09-13] MEDS: HumaLOG 300 UNITS/3 ML VIAL SC PRN (03:12)
[2019-09-13] MEDS: hydrALAZINE 20 MG/ML VIAL SLOW IVP PRN (04:31)
[2019-09-13 04:42] LABS: Hemoglobin 12.6 g/dL (12.0-16.0); Mean Corpuscular HGB CONC 30.3 g/dL (32.0-36.0); Mean Corpuscular Hemoglobin 27.4 pg (27.0-31.0); Mean Corpuscular Volume 90.4 fL (78.0-98.0); Mean Platelet Volume 7.8 fL (7.4-10.4); Platelet Count 366 thou/uL (130-400); RBC Distribution Width 11.6 % (11.5-14.5); Red Blood Cell (RBC) Count 4.61 mill/uL (4.20-5.40); White Blood Cell (WBC) Count 6.3 thou/uL (4.8-10.8)
[2019-09-13 05:04] LABS: Anion Gap 15 mmol/L (10-20); BUN (Urea Nitrogen) 30 mg/dL (9.8-20.1); Calc. Creatinine Clearance 97 mL/min (70-130); Calcium 9.3 mg/dL (7.8-10.44); Carbon Dioxide 28 mmol/L (23-31); Chloride 99 mmol/L (98-107); Estimated GFR-MDRD 90; Glucose 161 mg/dL (80-115); Potassium 3.8 mmol/L (3.5-5.1); Sodium 138 mmol/L (136-145)
--- NOTE | 2019-09-13 07:51 | RAD ---
EXAM: CHEST ONE VIEW HISTORY: Pneumonia COMPARISON: 09/12/2019 FINDINGS: Left subclavian central venous catheter remains in place. Right-sided thoracostomy tube Is again note d with tip overlying the region of the right hilum. Persistent pleural-parenchymal changes are again seen in each lung base which may represent bilateral pleural effusions and associated atelectas is. Right cardiac border is obscured. Pulmonary vasculature is mildly increased but does appear improved when compared to the prior exam. Residual contrast is seen in the region of the splenic flex ure. No other interval change IMPRESSION: 1. Right-sided thoracostomy tube remaining in place without evidence of pneumothorax. However, pleura l parenchymal changes at the right lung base are again seen which could be related to elevation right hemidiaphragm as well as volume loss. Small right pleural effusion is also suggested. 2. Stable pleural and parenchymal lung changes left lung base likely due to left pleural effusion and atelectasis. 3. Mild improvement in pulmonary vascular congestion.
--- NOTE | 2019-09-13 08:28 | PRG ---
DATE OF SERVICE: 09/13/2019 130 minutes critical care time. SUBJECTIVE: The patient remains on BiPAP in the ICU. Yesterday, she had her PleurX drained on the right, but only resulted in about 200 mL of output. She has remained on BiPAP most of the time. OBJECTIVE: VITAL SIGNS: Her temperature is 97.9, pulse in the 50s, blood pressure 142/77, O2 saturation 96%. Intake for 24 hours 1450, output 1067. HEENT: Unremarkable. NECK: No JVD. LUNGS: Poor air movement bilaterally. CARDIOVASCULAR: S1, S2. Slightly bradycardic. ABDOMEN: Protuberant. EXTREMITIES: She has grossly edematous arms. LABORATORY DATA: White count 6.3, hematocrit 41.7, and platelet count 366. Sodium 138, potassium 3.8, chloride 99, CO2 of 28, BUN 30, creatinine 0.6, glucose 161. ASSESSMENT: 1. Widely metastatic breast cancer. 2. Hypoxic respiratory failure. This is a combination of pleural effusions, lymphangitic spread of tumor, and pulmonary emboli. PLAN: 1. We are dealing with a patient who has really no concept of how serious her disease is and the fact that she has little hope for functional recovery. I do not see how aggressive intervention from a critical care standpoint is going to extend her life. This might be a situation where it would be helpful to get the family in here for conference so that they could perhaps talk with the patient. It is clear the patient did not get to this point without having some underlying psychologic or psychiatric issue that enable her to ignore her underlying disease process. 2. For the time being, I am going to try to wean the BiPAP settings down further. We will drain the PleurX catheter again tomorrow. Again, prognosis remains dismal. Job ID: [id number]
[2019-09-13] MEDS: Furosemide 20 MG/2 ML VIAL SLOW IVP SCH (09:03)
[2019-09-13] MEDS: Pantoprazole 40 MG VIAL IVP SCH (09:03)
[2019-09-13] MEDS: Enoxaparin Sodium 80 MG/0.8 ML SYRINGE SC SCH ×2 (09:03→20:44)
[2019-09-13] MEDS: Letrozole 2.5 MG TAB PO SCH (09:03)
[2019-09-13] MEDS: Carvedilol 6.25 MG TAB PO SCH ×2 (09:03→17:06)
--- NOTE | 2019-09-13 10:18 | PDOC.MOPN ---
Interval History: patient somnolent, remains on bipap - Vital Signs Vital Signs: Vital Signs (12 hours) Temp Pulse Resp BP Pulse Ox 09/13/19 09:03 170/91 H 09/13/19 07:38 55 L 09/13/19 06:00 16 09/13/19 05:00 97.9 F 09/13/19 04:31 54 L 09/13/19 04:00 21 H 100 09/13/19 02:12 54 L 09/13/19 02:00 98 F 18 09/13/19 00:00 20 09/12/19 23:00 98.5 F 18 Weight Admit Weight 153 lb 7.07 oz Weight 165 lb 5.547 oz Most Recent Monitor Data Heart Rate from ECG 50 NIBP 142/77 NIBP BP-Mean 98 Respiration from ECG 16 SpO2 96 - Physical Exam General: No acute distress HEENT: Atraumatic Cardiovascular: Regular rate (large right breast mass) - Labs Result Diagrams: 09/13/19 04:20 09/13/19 04:20 Lab results: Laboratory Results - last 24 hr 09/13/19 04:20: WBC 6.3, RBC 4.61, Hgb 12.6, Hct 41.7, MCV 90.4, MCH 27.4, MCHC 30.3 L, RDW 11.6, Plt Count 366, MPV 7.8 09/13/19 04:20: Sodium 138, Potassium 3.8, Chloride 99, Carbon Dioxide 28, Anion Gap 15, BUN 30 H, Creatinine 0.66, Estimated GFR (MDRD) 90, Glucose 161 H , Calcium 9.3 09/13/19 03:15: POC Glucose 174 H 09/12/19 21:16: POC Glucose 187 H 09/12/19 16:23: POC Glucose 212 H 09/12/19 11:39: POC Glucose 240 H Status: lab reviewed by me A/P - Problem (1) Acute respiratory failure with hypoxia Current Visit: Yes Code(s): J96.01 - ACUTE RESPIRATORY FAILURE WITH HYPOXIA Status: Acute (2) Bilateral pleural effusion Current Visit: Yes Code(s): J90 - PLEURAL EFFUSION, NOT ELSEWHERE CLASSIFIED Status: Acute (3) Metastatic breast cancer Current Visit: Yes Code(s): C50.919 - MALIGNANT NEOPLASM OF UNSP SITE OF UNSPECIFIED FEMALE BREAST Status: Acute - Plan Plan: Patient has stage IV breast cancer agree that she should be at least a DNAR. Would favor hospice Patient was informed earlier this week by me via cultural link that she has stage IV cancer and is uncurable
--- NOTE | 2019-09-13 16:53 | PDOC.HOSPP ---
- Subjective Encounter Date: 09/13/19 Encounter Time: 11:00 Subjective: Patient reports still feeling tired. Improved SOB and cough. SHe has mild pulmonary edema still. Discussed with patient that her cancer is incurable and oncology states she has poor survival. She says she will consider going home, but needs more information on hospice. - Objective Vital Signs & Weight: Vital Signs (12 hours) Temp Pulse Resp BP Pulse Ox 09/13/19 14:00 18 09/13/19 13:58 49 L 09/13/19 13:00 98.0 F 09/13/19 12:00 16 09/13/19 10:52 49 L 09/13/19 10:00 20 09/13/19 09:03 170/91 H 09/13/19 08:00 97.5 F L 98 09/13/19 07:38 55 L 09/13/19 06:00 16 09/13/19 05:00 97.9 F Weight Admit Weight 153 lb 7.07 oz Weight 165 lb 5.547 oz Most Recent Monitor Data Heart Rate from ECG 44 NIBP 157/95 NIBP BP-Mean 115 Respiration from ECG 8 SpO2 98 I&O: 09/12/19 09/13/19 09/14/19 06:59 06:59 06:59 Intake Total 933 1450 Output Total 1630 1067 200 Balance -697 383 -200 Result Diagrams: 09/13/19 04:20 09/13/19 04:20 Additional Labs: Accuchecks 09/13/19 09/13/19 09/12/19 15:03 03:15 21:16 POC Glucose 119 H 174 H 187 H Hospitalist ROS - Review of Systems Constitutional: denies: fever, chills - Medication Medications: Active Medications Generic Name Dose Route Start Last Admin Trade Name Freq PRN Reason Stop Dose Admin Carvedilol 6.25 mg 09/12/19 08:00 09/13/19 09:03 Coreg PO 6.25 mg BID-WM JAROD Administration Enoxaparin Sodium 70 mg 09/11/19 09:00 09/13/19 09:03 Lovenox SC 70 mg 0900,2100 JAROD Administration Hydralazine HCl 10 mg 09/07/19 09:24 09/13/19 04:31 Apresoline SLOW IVP 10 mg Q4H PRN Administration SBP > 185, DBP > 105 Hydralazine HCl 10 mg 09/08/19 19:41 09/12/19 16:34 Apresoline SLOW IVP 10 mg Q4H PRN Administration Hypertension Potassium Chloride 40 meq/ 270 mls @ 135 mls/hr 09/04/19 18:18 09/05/19 06:00 Sodium Chloride IVPB 270 mls ASDIR PRN Administration FOR SERUM K+ 2.5 - 3.5 Potassium Chloride 40 meq/ 100 mls @ 50 mls/hr 09/04/19 18:18 09/10/19 04:57 Device IVPB 100 mls ASDIR PRN Administration FOR SERUM K+ 2.5 - 3.5 Nicardipine HCl 50 mg/ Sodium 250 mls @ 0 mls/hr 09/10/19 17:15 09/10/19 22: 57 Chloride IV 250 mls INF JAROD Administration Protocol Per Protocol Insulin Glargine 6 units/ 0.06 mls @ 0 mls/hr 09/12/19 21:00 09/12/19 21:14 Miscellaneous Medication SC 0.06 mls HS JAROD Administration Insulin Human Lispro 0 units 09/07/19 09:26 09/13/19 03:12 Humalog SC 2 unit .MODERATE SLIDING SC PRN Administration Moderate Correctional Scale Letrozole 2.5 mg 09/12/19 09:00 09/13/19 09:03 Femara PO 2.5 mg DAILY JAROD Administration Morphine Sulfate 2 mg 09/08/19 18:21 09/11/19 20:27 Morphine SLOW IVP 10/08/19 18:21 2 mg Q1H PRN Administration BREAKTHROUGH PAIN/Agitation Morphine Sulfate 2 mg 09/10/19 16:22 09/12/19 16:57 Morphine SLOW IVP 2 mg Q1H PRN Administration Dyspnea Pantoprazole Sodium 40 mg 09/05/19 09:00 09/13/19 09:03 Protonix IVP 40 mg DAILY JAROD Administration Propofol 1,000 mg 09/08/19 18:21 09/09/19 22:31 Diprivan IV 10/08/19 18:21 1,000 mg INF PRN Administration TO ACHIEVE GOAL RASS Protocol Sodium Chloride 10 ml 09/05/19 09:00 09/13/19 09:17 Flush - Normal Saline IVF 10 ml Q12HR JAROD Administration - Exam General Appearance: NAD, awake alert General - other findings: on BIPAP ENT: normocephalic atraumatic, no oropharyngeal lesions Neck: supple, symmetric, no JVD Heart: RRR, no murmur, no gallops, no rubs Respiratory - other findings: diminished breath sounds bilaterally Gastrointestinal: soft, non-tender, non-distended, normal bowel sounds Extremities: 2+ LE edema Extremities - other findings: anasarca Hosp A/P - Plan Bilateral upper extremity venous doppler: metastatic lymphadenopathy adjacent to the right subclavian vein. left axilary vein could not be compressed and DVT not excluded. Left basilic vein supeficial venous thrombosis CTA thorax 09/07: numerous small pulmonary emboli in the right pulmonary arteries. large bilateral pleural effusions. Congestive change with edema. Numerous pulmonary nodules and adenopathy adn right breast mass. Subcutaneous edema and anasarca Chest X ray 09/04: vascular congestion with evidence of bilateral edema/ infiltrates. CT abdomen pelvis: large amount of pleural effusion with pulmonary edema and consolidation/atleectasis in the RML. Right breast mass with subcutaneous edema CTA thorax 09/03: moderate prominent bilateral pleural effusions. PUlmonary metastatic disease. INfiltrating mass right breast, extensive adenopathy within the right axilla and preprectoral regions. Largest lymph node in right axilla 2.7 cm. Large supraclavicular lymph node 2.3 cm, large left axillary lymphadenopathy, prominent mediastinal and hilar lymphadenopathy. Diffuse anasarca. Osteolytic lesion in left 9th posterior irb, osteolytic lesion in right aspect of manubrium Chest X ray 09/07: bilateral pleural effusions, interstitial opacities Acute hypoxic respiratory failure secondary to pulmonary edema. metastatic breast cancer to the lung, pulmonary embolism - on BIPAP prn and nasal cannula - continue IV lasix 20 mg for pulmonary edema. Chest X ray today shows improvement - needs pleurex catheter drainage daily - continue therapeutic lovenox for pulmonary embolism - dopplers negative for DVT - discussed poor prognosis with the patient, appreciate palliative care to discuss hospice Metastatic breast cancer to lungs, lymph node, 9th rib, right manubrium - thoracentesis showed ER+, HI+ breast cancer, carcinoma identified in pleural fluid -started on letrazole - poor prognosis Left basilic vein superficial thrombosis - continue lovenox bid Type II diabetes - hemoglobin A1C 10.7 - start lantus 6 units qhs Dispo: may need discharge to hospice Diet: currently NPO due to being on BIPAP DVT prophylaxis: therapeutic lovenox Code status: full code
[2019-09-13] MEDS ORDERED: Furosemide 40 MG/4 ML VIAL ONE (17:29)
[2019-09-13] MEDS ORDERED: Furosemide 40 MG/4 ML VIAL SLOW IVP SCH (17:45)
[2019-09-13] MEDS: Insulin Glargine 6 UNITS in Pre-Filled Syringe 1 EACH SC SCH (20:45)
--- NOTE | 2019-09-14 08:12 | PRG ---
DATE OF SERVICE: 09/14/2019 SUBJECTIVE: The patient is doing about the same, continuing to need BiPAP. OBJECTIVE: VITAL SIGNS: Temperature 97, pulse in the 40s to 50s, blood pressure 148/70, and O2 saturation 98%. 24-hour intake 400, output 800. HEENT: Unremarkable. NECK: No JVD. LUNGS: Diminished breath sounds in both bases. CARDIAC: S1 and S2, but slightly bradycardic. ABDOMEN: Soft. EXTREMITIES: Edematous arms. LABORATORY DATA: No new labs were obtained today. IMAGING STUDIES: Chest x-ray continued to show bilateral effusions. ASSESSMENT: 1. Metastatic breast cancer. 2. Malignant pleural effusions. 3. Chronic hypoxic respiratory failure secondary to the cancer. PLAN: As per my dictation yesterday, I do not think we are going to get anywhere with the current treatment. I think this situation is rather hopeless and the best treatment we can afford this lady is palliative in nature. Job ID: [id number]
[2019-09-14] MEDS: Carvedilol 6.25 MG TAB PO SCH ×2 (08:53→16:50)
[2019-09-14] MEDS: Furosemide 40 MG/4 ML VIAL SLOW IVP SCH (08:55)
[2019-09-14] MEDS: Letrozole 2.5 MG TAB PO SCH (08:55)
[2019-09-14] MEDS: Pantoprazole 40 MG VIAL IVP SCH (08:56)
[2019-09-14] MEDS: Enoxaparin Sodium 80 MG/0.8 ML SYRINGE SC SCH ×2 (08:56→20:38)
--- NOTE | 2019-09-14 09:12 | RAD ---
PORTABLE CHEST: Date: 09/14/2019 PROVIDED CLINICAL HISTORY: Pneumonia. FINDINGS: Comparison with 09/13/2019. Significant interval change with respect to the prior examination is not apparent. IMPRESSION: As above. POS: AYLIN
[2019-09-14 10:42] LABS: Anion Gap 15 mmol/L (10-20); BUN (Urea Nitrogen) 38 mg/dL (9.8-20.1); Calc. Creatinine Clearance 88 mL/min (70-130); Calcium 8.9 mg/dL (7.8-10.44); Carbon Dioxide 27 mmol/L (23-31); Chloride 98 mmol/L (98-107); Estimated GFR-MDRD 82; Glucose 212 mg/dL (80-115); Potassium 3.8 mmol/L (3.5-5.1); Sodium 136 mmol/L (136-145)
[2019-09-14] MEDS: HumaLOG 300 UNITS/3 ML VIAL SC PRN ×2 (11:40→17:29)
--- NOTE | 2019-09-14 15:23 | PDOC.PALPN ---
Palliative Progress Note - Subjective Short of breath, O2 dependent. - Objective Vital Signs: Vital Signs - Most Recent Temp Pulse Resp BP Pulse Ox 98.0 F 48 L 19 174/83 H 88 L 09/14/19 11:00 09/14/19 08:07 09/13/19 18:00 09/14/19 08:53 09/14/19 08:00 - Physical Exam Constitutional: ill appearing, mild distress HEENT: EOMI, moist MMs, sclera anicteric Respiratory: diminished lung sound, labored respirations Cardiovascular: RRR Gastrointestinal: continent, non-tender Genitourinary: cardoso catheter Musculoskeletal: no cyanosis, edema present Neurology: moves all 4 limbs Skin: cap refill <2 seconds, fragile Deviation from normal: Wound to right breast Psychiatric: A&O x 3 - Assessment (1) Palliative care encounter Code(s): Z51.5 - ENCOUNTER FOR PALLIATIVE CARE Current Visit: Yes Status: Acute (2) Diabetes mellitus Code(s): E11.9 - TYPE 2 DIABETES MELLITUS WITHOUT COMPLICATIONS Current Visit : Yes Status: Acute (3) Metastatic breast cancer Code(s): C50.919 - MALIGNANT NEOPLASM OF UNSP SITE OF UNSPECIFIED FEMALE BREAST Current Visit: Yes Status: Acute - Plan Plan: Family meeting with Spiritual Care, Patient , son-in-law, daughter , Dr Jarquin, and Palliative Care Team. Family shared their understanding of current health status, and Dr Jarquin discussed terminal nature of cancer. Patient and family overall goal is to have her return to [place]. Discussed that she may in fact not be able to physically manage the burden of lengthy travel. After extensive conversation it was decided to transition to Hospice, DNAR, and OOHDNAR completed. Sasha Garcia assisting with paperwork for hospice. [60] minutes spent on this encounter with >50% of the time in counseling and coordination of care. - ROS Constitutional: weakness ENT: alteration in dentition Respiratory: shortness of breath, shortness of breath with extertion Cardiology: light headedness Skin: wounds
--- NOTE | 2019-09-14 17:14 | PDOC.HOSPP ---
- Subjective Encounter Date: 09/14/19 Encounter Time: 09:30 Subjective: The patient states she still feels tired. She want to walk and sit in the chair and go to the bathroom. She is tired of being in the bed. Family meeting held today, they have agreed to look into hospice. THey want to take her home to [place] for an [address] Explained that she may not survive the drive. Advised that she go home first and see how she does for a few days locally and then consider that. - Objective Vital Signs & Weight: Vital Signs (12 hours) Temp Pulse BP Pulse Ox 09/14/19 16:50 174/83 H 09/14/19 16:00 98.1 F 09/14/19 11:00 98.0 F 09/14/19 08:53 174/83 H 09/14/19 08:07 48 L 09/14/19 08:00 97.7 F 88 L Weight Admit Weight 153 lb 7.07 oz Weight 156 lb 1.396 oz Most Recent Monitor Data Heart Rate from ECG 58 NIBP 188/150 NIBP BP-Mean 162 Respiration from ECG 23 SpO2 90 I&O: 09/13/19 09/14/19 09/15/19 06:59 06:59 06:59 Intake Total 1450 400 95 Output Total 1067 802 340 Balance 383 -402 -245 Result Diagrams: 09/13/19 04:20 09/14/19 10:04 Additional Labs: Accuchecks 09/14/19 09/14/19 09/14/19 11:41 06:05 00:38 POC Glucose 196 H 106 108 Hospitalist ROS - Review of Systems Constitutional: denies: fever, chills - Medication Medications: Active Medications Generic Name Dose Route Start Last Admin Trade Name Freq PRN Reason Stop Dose Admin Carvedilol 6.25 mg 09/12/19 08:00 09/14/19 16:50 Coreg PO 6.25 mg BID-WM JAROD Administration Enoxaparin Sodium 70 mg 09/11/19 09:00 09/14/19 08:56 Lovenox SC 70 mg 0900,2100 JAROD Administration Furosemide 40 mg 09/13/19 09:04 09/14/19 08:55 Lasix SLOW IVP 40 mg DAILY JAROD Administration Hydralazine HCl 10 mg 09/07/19 09:24 09/13/19 04:31 Apresoline SLOW IVP 10 mg Q4H PRN Administration SBP > 185, DBP > 105 Hydralazine HCl 10 mg 09/08/19 19:41 09/12/19 16:34 Apresoline SLOW IVP 10 mg Q4H PRN Administration Hypertension Potassium Chloride 40 meq/ 270 mls @ 135 mls/hr 09/04/19 18:18 09/05/19 06:00 Sodium Chloride IVPB 270 mls ASDIR PRN Administration FOR SERUM K+ 2.5 - 3.5 Potassium Chloride 40 meq/ 100 mls @ 50 mls/hr 09/04/19 18:18 09/10/19 04:57 Device IVPB 100 mls ASDIR PRN Administration FOR SERUM K+ 2.5 - 3.5 Nicardipine HCl 50 mg/ Sodium 250 mls @ 0 mls/hr 09/10/19 17:15 09/10/19 22: 57 Chloride IV 250 mls INF JAROD Administration Protocol Per Protocol Insulin Glargine 6 units/ 0.06 mls @ 0 mls/hr 09/12/19 21:00 09/13/19 20:45 Miscellaneous Medication SC 0.06 mls HS JAROD Administration Insulin Human Lispro 0 units 09/07/19 09:26 09/14/19 11:40 Humalog SC 2 unit .MODERATE SLIDING SC PRN Administration Moderate Correctional Scale Letrozole 2.5 mg 09/12/19 09:00 09/14/19 08:55 Femara PO 2.5 mg DAILY JAROD Administration Morphine Sulfate 2 mg 09/08/19 18:21 09/11/19 20:27 Morphine SLOW IVP 10/08/19 18:21 2 mg Q1H PRN Administration BREAKTHROUGH PAIN/Agitation Morphine Sulfate 2 mg 09/10/19 16:22 09/12/19 16:57 Morphine SLOW IVP 2 mg Q1H PRN Administration Dyspnea Pantoprazole Sodium 40 mg 09/05/19 09:00 09/14/19 08:56 Protonix IVP 40 mg DAILY JAROD Administration Propofol 1,000 mg 09/08/19 18:21 09/09/19 22:31 Diprivan IV 10/08/19 18:21 1,000 mg INF PRN Administration TO ACHIEVE GOAL RASS Protocol Sodium Chloride 10 ml 09/05/19 09:00 09/14/19 09:59 Flush - Normal Saline IVF 10 ml Q12HR JAROD Administration - Exam General Appearance: NAD, awake alert General - other findings: on BIPAP Eye: PERRL, anicteric sclera ENT: normocephalic atraumatic, no oropharyngeal lesions Neck: no JVD Heart: RRR, no murmur, no gallops, no rubs Respiratory: CTAB Respiratory - other findings: diminished breath sounds. Gastrointestinal: soft, non-tender, non-distended, normal bowel sounds Extremities: no cyanosis Extremities - other findings: generalized anasarca Skin: normal turgor, no lesions, no rashes Neurological: cranial nerve grossly intact, normal sensation to touch, no focal deficits, no new deficit Hosp A/P - Plan Bilateral upper extremity venous doppler: metastatic lymphadenopathy adjacent to the right subclavian vein. left axilary vein could not be compressed and DVT not excluded. Left basilic vein supeficial venous thrombosis CTA thorax 09/07: numerous small pulmonary emboli in the right pulmonary arteries. large bilateral pleural effusions. Congestive change with edema. Numerous pulmonary nodules and adenopathy adn right breast mass. Subcutaneous edema and anasarca Chest X ray 09/04: vascular congestion with evidence of bilateral edema/ infiltrates. CT abdomen pelvis: large amount of pleural effusion with pulmonary edema and consolidation/atleectasis in the RML. Right breast mass with subcutaneous edema CTA thorax 09/03: moderate prominent bilateral pleural effusions. PUlmonary metastatic disease. INfiltrating mass right breast, extensive adenopathy within the right axilla and preprectoral regions. Largest lymph node in right axilla 2.7 cm. Large supraclavicular lymph node 2.3 cm, large left axillary lymphadenopathy, prominent mediastinal and hilar lymphadenopathy. Diffuse anasarca. Osteolytic lesion in left 9th posterior irb, osteolytic lesion in right aspect of manubrium Chest X ray 09/07: bilateral pleural effusions, interstitial opacities Chest Xray 09/13: Acute hypoxic respiratory failure secondary to pulmonary edema. metastatic breast cancer to the lung, pulmonary embolism - on BIPAP prn and nasal cannula - continue IV lasix 20 mg for pulmonary edema and anasarca. Chest X ray today shows persistent pulm edema - continue pleurex catheter drainage daily - continue therapeutic lovenox for pulmonary embolism - dopplers negative for DVT - discussed poor prognosis with the patient, appreciate palliative care to discuss hospice Metastatic breast cancer to lungs, lymph node, 9th rib, right manubrium - thoracentesis showed ER+, UT+ breast cancer, carcinoma identified in pleural fluid -started on letrazole - poor prognosis - hospice was consulted Left basilic vein superficial thrombosis - continue lovenox bid Type II diabetes - hemoglobin A1C 10.7 - continue lantus 6 units qhs Dispo: anticipate d/c with hospice Diet: currently NPO due to being on BIPAP DVT prophylaxis: therapeutic lovenox Code status: full code
[2019-09-14] MEDS: hydrALAZINE 20 MG/ML VIAL SLOW IVP PRN (20:22)
[2019-09-14 20:36] VITALS: BP 186/106
[2019-09-14] MEDS: Insulin Glargine 6 UNITS in Pre-Filled Syringe 1 EACH SC SCH (20:38)
[2019-09-14] MEDS: niCARdipine 50 MG in Sodium Chloride 0.9% 250 ML 230 ML IV SCH (23:08)
[2019-09-15 06:21] VITALS: BMI 29.9
--- NOTE | 2019-09-15 07:54 | PRG ---
DATE OF SERVICE: SUBJECTIVE: She is resting comfortably on BiPAP. I think she is tentatively supposed to go home on hospice soon. She has been made DNAR. OBJECTIVE: VITAL SIGNS: Temperature is 98.0, pulse 51, blood pressure 168/84, and O2 saturation 93%. HEENT: Unremarkable. NECK: No adenopathy or JVD. LUNGS: Diminished breath sounds at the bases. CARDIAC: S1, S2. Bradycardic. ABDOMEN: Soft. EXTREMITIES: No edema, except in her arms. LABORATORY DATA: None today. ASSESSMENT: Metastatic breast cancer with bilateral malignant pleural effusions. PLAN: Hospice care. Drain PleurX catheter today. Given that she is going to hospice, I would not anticoagulate her when she leaves the hospital. Job ID: [id number]
[2019-09-15] MEDS: Furosemide 40 MG/4 ML VIAL SLOW IVP SCH (09:03)
[2019-09-15] MEDS: Carvedilol 6.25 MG TAB PO SCH (09:03)
[2019-09-15] MEDS: Enoxaparin Sodium 80 MG/0.8 ML SYRINGE SC SCH (09:04)
[2019-09-15] MEDS: Pantoprazole 40 MG VIAL IVP SCH (09:04)
--- NOTE | 2019-09-15 09:18 | RAD ---
UPRIGHT PORTABLE CHEST ONE VIEW: History: Follow up pneumonia. Comparison: 09-14-2019 FINDINGS: Cardiomegaly with bilateral pleural effusions as well as bilateral lower lobe and infrahilar parenchy mal changes, stable. Left sided subclavian catheter and right sided chest tubes in place. IMPRESSION: Overall stable vascular congestion and mid and lower lung zone parenchymal changes and pleural effusi on changes with cardiomegaly. Continued short term follow up. POS: [facility]
[2019-09-15] MEDS: Letrozole 2.5 MG TAB PO SCH (10:50)
[2019-09-15] MEDS: HumaLOG 300 UNITS/3 ML VIAL SC PRN (11:34)
[2019-09-15 15:25] VITALS: TEMP 98.5
--- NOTE | 2019-09-15 20:51 | DIS ---
DATE OF ADMISSION: 09/04/2019 DATE OF DISCHARGE: 09/15/2019 REASON FOR HOSPITALIZATION: Lower extremity edema and breast mass. SIGNIFICANT FINDINGS: The patient found to have metastatic breast cancer, resulting in recurrent pleural effusion that required a PleurX catheter. PROCEDURES PERFORMED AND TREATMENTS RENDERED: The patient presented to [facility] in [place], [place] on 09/04/2019. Please see full history and physical from Dr. Terrell on 09/04/2019 for full details. The patient was admitted to the intensive care unit with acute respiratory failure requiring intubation. The patient was diagnosed to having bilateral pleural effusions, which were confirmed to be malignant effusions resulting in acute respiratory failure and requiring her intubation. The patient with a widely metastatic inflammatory breast cancer, and she has been aware of this disease for greater than two years. The patient has mets to bilateral axilla and the right subclavicular lymph nodes, the lungs, the bone of the rib and manubrium, and the patient with stage IV breast cancer present on admission. The patient was also diagnosed with hyponatremia and diabetes mellitus for which she was not taking medications prior to arrival. The patient was seen and evaluated by Pulmonology, please see full consultation notes and progress notes for details. Pulmonology is managing the patient while she is in the critical care unit-please see full progress notes and orders for day-to-day changes. The patient was evaluated by the palliative care team, please see full consultation notes and progress notes for details. The patient was evaluated by Oncology, please see full consultation notes and progress notes from Dr. Gillette for details. With the patient having late stage malignancy with significant bilateral pleural effusions, there was severely poor prognosis in the short term. However, the patient was able to be extubated successfully and she was breathing comfortably on low-flow nasal cannula on 09/15/2019 with great efforts from the medical and surgical team. The patient undergoing a CT angiography of the chest on 09/08/2019, please see full report for details. In addition to the patient's bilateral large pleural effusions from compressive atelectasis, the patient was also found to have numerous small pulmonary emboli. The patient was started on all appropriate medical therapy for these pulmonary emboli. Again, due to the late stage malignancy with numerous medical problems and extremely poor prognosis, the palliative care team met with the family and ultimately, the patient's family and the patient have elected for do not resuscitate status and comfort measures. After a family meeting, the patient and her family have elected to go home with home hospice care. The patient was recommended safe for discharge under the care of hospice on 09/15/2019. In the family meeting, family members understanding the terminal nature in the near future. CONDITION ON DISCHARGE: Guarded. SPECIFIC INSTRUCTIONS FOR THE PATIENT/FAMILY: 1. The patient recommended safe for discharge immediately to the care of home hospice for her terminal late stage breast malignancy. 2. The patient recommended to have daily PleurX catheter drainage for symptomatic relief. 3. The patient recommended to have all medications adjusted as appropriately by hospice physician. 4. The patient is recommended to follow up with hospice physician exclusively for all future matters. TIME SPENT: Greater than 39 minutes spent coordinating care and discharge process for this patient. Job ID: [id number]
== END 2019-09-15 15:15 | disposition hospice, home (50) | DRG 597 ==
LOC: ERS 14:21 → CCU 16:58 → T4-B 09-05 18:52 → CCU 09-08 17:56
PROVIDERS: ADMIT Internal Medicine; ATTEND Internal Medicine
PROC: 5A1935Z Respiratory Ventilation, Less than 24 Consecutive Hours (ICD-10-PCS; principal; 2019-09-04)
PROC: 0BH17EZ Insertion of Endotracheal Airway into Trachea, Via Natural or Artificial Opening (ICD-10-PCS; 2019-09-04)
PROC: 0W993ZZ Drainage of Right Pleural Cavity, Percutaneous Approach (ICD-10-PCS; 2019-09-04)
PROC: 0BH17EZ Insertion of Endotracheal Airway into Trachea, Via Natural or Artificial Opening (ICD-10-PCS; 2019-09-08)
PROC: 5A09357 Assistance with Respiratory Ventilation, Less than 24 Consecutive Hours, Continuous Positive Airway Pressure (ICD-10-PCS; 2019-09-08)
PROC: 0W9930Z Drainage of Right Pleural Cavity with Drainage Device, Percutaneous Approach (ICD-10-PCS; 2019-09-10)
PROC: 02HV33Z Insertion of Infusion Device into Superior Vena Cava, Percutaneous Approach (ICD-10-PCS; 2019-09-10)
PROC: 5A09457 Assistance with Respiratory Ventilation, 24-96 Consecutive Hours, Continuous Positive Airway Pressure (ICD-10-PCS; 2019-09-10)
DX: C50.911 Malignant neoplasm of unspecified site of right female breast (principal); J96.01 Acute respiratory failure with hypoxia; I26.99 Other pulmonary embolism without acute cor pulmonale; C77.1 Secondary and unspecified malignant neoplasm of intrathoracic lymph nodes; C78.02 Secondary malignant neoplasm of left lung; J91.0 Malignant pleural effusion; E87.2 Acidosis; C79.51 Secondary malignant neoplasm of bone; C78.01 Secondary malignant neoplasm of right lung; I82.612 Acute embolism and thrombosis of superficial veins of left upper extremity; E87.1 Hypo-osmolality and hyponatremia; J81.1 Chronic pulmonary edema; C77.3 Secondary and unspecified malignant neoplasm of axilla and upper limb lymph nodes; Z51.5 Encounter for palliative care; Z66 Do not resuscitate; E66.9 Obesity, unspecified; E11.9 Type 2 diabetes mellitus without complications; I10 Essential (primary) hypertension; Z78.1 Physical restraint status; Z68.30 Body mass index [BMI] 30.0-30.9, adult; Z17.0 Estrogen receptor positive status [ER+]
CPT/HCPCS: 31500; 36415; 36416; 51702; 71045; 71046; 71275; 74177; 80048; 80053; 81003; 81015; 82150; 82550; 82553; 82805; 82945; 83036; 83605; 83615; 83690; 83880; 84157; 84478; 84484; 85025; 85027; 85060; 86300; 87040; 87070; 87116; 87205; 87206; 87804; 88112; 88305; 88341; 88342; 88361; 89051; 93005; 93306; 93970; 94002; 94003; 94660; 96365; 96367; 96368; 96375; C1729; C9113; J0360; J0461; J0692; J1642; J1650; J1815; J1940; J1956; J2060; J2250; J2270; J2704; J3010; J3370; J3480; J3490; J7050; Q9967